=== PATIENT | female | born 1945 | race Caucasian/White ===

== ENCOUNTER → 2016-09-28 | Outpatient (CLI) | payer BC, OTHER ==
[~2016-09-28] MED LIST: ACET-1256 PO; ACET-1311 PO; ACET1SUP84 PO; ATOR-22 PO; ATV5 PO; CRDCD180 PO; DLCS PR; DPKEC500 PO; ENOX100I SQ; FLUV100T12 PO; HMLI SC; LANS30TA3 PO; LEVO125T7 PO; LORA0.5T12 PO; MAGN400T6 PO; MAGNSUS5 PO; MULT-506 PO; PRNJ PO; PROTEIN SUPPLEMENT PO; [UNRECOGNIZED DRUG - CODE]; [UNRECOGNIZED DRUG - OTHER]
[2016-09-28 08:43] LABS: HEMATOCRIT 43.6 % (37-47); LYMPH % 40.1 %; MEAN CELL VOLUME 90.5 fL (80-100); MEAN CORPUSCULAR HEMOGLOBIN 30.1 pg (25-34); MEAN CORPUSCULAR HGB CONC 33.3 g/dl (32-36); MEAN PLATELET VOLUME 12.8 fL (7.4-10.4); MONO % 9.2 %; PLATELET COUNT 177 K/uL (130-400); RED BLOOD COUNT 4.82 M/uL (4.2-5.4); WHITE BLOOD COUNT 8.03 K/uL (4.8-10.8)
[2016-09-28 08:44] LABS: BASO % 0.2 %; BASO ABS # 0.02 K/uL (0-0.2); COMPLETE YES; IG% 0.5 %; LYMPH ABS # 3.22 K/uL (1.2-3.4)
[2016-09-28 09:58] LABS: ESTIMATED AVERAGE GLUCOSE 131 mg/dl; HA1C FLAG Normal (Normal)
== END ==
LOC: C.LABCC 08:03
PROVIDERS: ATTEND Internal Medicine
DX: I26.99 Other pulmonary embolism without acute cor pulmonale (principal); E11.9 Type 2 diabetes mellitus without complications

== ENCOUNTER → 2016-10-27 | Outpatient (CLI) | payer BC, OTHER ==
[2016-10-27 09:28] LABS: BASO % 0.4 %; BASO ABS # 0.03 K/uL (0-0.2); COMPLETE YES; HEMATOCRIT 44.4 % (37-47); IG% 0.4 %; LYMPH ABS # 2.98 K/uL (1.2-3.4); MEAN CELL VOLUME 91.5 fL (80-100); MEAN CORPUSCULAR HEMOGLOBIN 30.5 pg (25-34); MEAN CORPUSCULAR HGB CONC 33.3 g/dl (32-36); MEAN PLATELET VOLUME 12.6 fL (7.4-10.4); MONO % 8.7 %; NEUT % 46.5 %; PLATELET COUNT 179 K/uL (130-400); RED BLOOD COUNT 4.85 M/uL (4.2-5.4); WHITE BLOOD COUNT 7.45 K/uL (4.8-10.8)
== END ==
LOC: C.LABCC 08:32
PROVIDERS: ATTEND Internal Medicine
DX: Z86.711 Personal history of pulmonary embolism (principal)

== ENCOUNTER → 2016-11-26 | Outpatient (CLI) | payer BC, OTHER ==
[2016-11-26 08:32] LABS: BASO % 0.4 %; BASO ABS # 0.03 K/uL (0-0.2); COMPLETE YES; EOS % 4.3 %; HEMATOCRIT 42.9 % (37-47); LYMPH % 35.5 %; LYMPH ABS # 2.58 K/uL (1.2-3.4); MEAN CELL VOLUME 90.3 fL (80-100); MEAN CORPUSCULAR HEMOGLOBIN 30.1 pg (25-34); MEAN CORPUSCULAR HGB CONC 33.3 g/dl (32-36); MEAN PLATELET VOLUME 12.7 fL (7.4-10.4); MONO % 11.3 %; NEUT % 47.5 %; PLATELET COUNT 160 K/uL (130-400); RED BLOOD COUNT 4.75 M/uL (4.2-5.4); WHITE BLOOD COUNT 7.27 K/uL (4.8-10.8)
== END ==
LOC: C.LABCC 08:13
PROVIDERS: ATTEND Internal Medicine
DX: I26.99 Other pulmonary embolism without acute cor pulmonale (principal)

== ENCOUNTER → 2016-12-27 | Outpatient (CLI) | payer BC, OTHER ==
[2016-12-27 10:00] LABS: BASO % 0.5 %; BASO ABS # 0.04 K/uL (0-0.2); COMPLETE YES; EOS % 5.3 %; HEMATOCRIT 43.1 % (37-47); IG% 0.7 %; LYMPH % 37.1 %; LYMPH ABS # 3.06 K/uL (1.2-3.4); MEAN CELL VOLUME 92.5 fL (80-100); MEAN CORPUSCULAR HEMOGLOBIN 29.4 pg (25-34); MEAN CORPUSCULAR HGB CONC 31.8 g/dl (32-36); MEAN PLATELET VOLUME 12.7 fL (7.4-10.4); NEUT % 46.4 %; PLATELET COUNT 182 K/uL (130-400); RED BLOOD COUNT 4.66 M/uL (4.2-5.4); WHITE BLOOD COUNT 8.24 K/uL (4.8-10.8)
== END ==
LOC: C.LABCC 09:10
PROVIDERS: ATTEND Internal Medicine
DX: I26.99 Other pulmonary embolism without acute cor pulmonale (principal)

== ENCOUNTER → 2017-01-26 | Outpatient (CLI) | payer BC, OTHER ==
[2017-01-26 08:40] LABS: BASO % 0.3 %; BASO ABS # 0.03 K/uL (0-0.2); COMPLETE YES; EOS % 4.9 %; HEMATOCRIT 44.1 % (37-47); IG% 0.7 %; LYMPH ABS # 3.47 K/uL (1.2-3.4); MEAN CELL VOLUME 92.5 fL (80-100); MEAN CORPUSCULAR HEMOGLOBIN 30.4 pg (25-34); MEAN CORPUSCULAR HGB CONC 32.9 g/dl (32-36); MEAN PLATELET VOLUME 12.8 fL (7.4-10.4); MONO % 9.5 %; NEUT % 46.6 %; PLATELET COUNT 157 K/uL (130-400); RED BLOOD COUNT 4.77 M/uL (4.2-5.4); WHITE BLOOD COUNT 9.12 K/uL (4.8-10.8)
[2017-01-26 08:49] LABS: ALT/SGPT 17 U/L (12-78); AST/SGOT 19 U/L (15-37); BLOOD UREA NITROGEN 15 mg/dl (7-18); BUN/CREATININE RATIO 23.7 (10-20); CARBON DIOXIDE 31 mmol/L (21-32); CHLORIDE 103 mmol/L (98-107); CREATININE 0.65 mg/dl (0.60-1.20); GLUCOSE 109 mg/dl (70-99); POTASSIUM 4.1 mmol/L (3.5-5.1); SODIUM 141 mmol/L (136-145)
[2017-01-26 08:51] LABS: ALB/GLOB RATIO 0.9 (0.9-2); ALKALINE PHOSPHATASE 47 U/L (45-117)
[2017-01-26 09:02] LABS: CALCIUM 8.9 mg/dl (8.5-10.1)
[2017-01-26 09:47] LABS: ESTIMATED AVERAGE GLUCOSE 143 mg/dl; HA1C FLAG Normal (Normal)
== END ==
LOC: C.LABCC 08:13
PROVIDERS: ATTEND Internal Medicine
DX: I26.99 Other pulmonary embolism without acute cor pulmonale (principal); E11.9 Type 2 diabetes mellitus without complications; N18.9 Chronic kidney disease, unspecified; Z79.01 Long term (current) use of anticoagulants

== ENCOUNTER → 2017-02-25 | Outpatient (CLI) | payer BC, OTHER ==
[2017-02-25 08:33] LABS: BASO % 0.3 %; BASO ABS # 0.02 K/uL (0-0.2); COMPLETE YES; EOS % 4.7 %; HEMATOCRIT 45.1 % (37-47); IG% 0.8 %; LYMPH % 35.8 %; LYMPH ABS # 2.61 K/uL (1.2-3.4); MEAN CELL VOLUME 92.2 fL (80-100); MEAN CORPUSCULAR HEMOGLOBIN 29.4 pg (25-34); MEAN CORPUSCULAR HGB CONC 31.9 g/dl (32-36); MEAN PLATELET VOLUME 12.9 fL (7.4-10.4); NEUT % 47.4 %; PLATELET COUNT 190 K/uL (130-400); RED BLOOD COUNT 4.89 M/uL (4.2-5.4); WHITE BLOOD COUNT 7.29 K/uL (4.8-10.8)
== END ==
LOC: C.LABCC 08:12
PROVIDERS: ATTEND Internal Medicine
DX: I26.99 Other pulmonary embolism without acute cor pulmonale (principal); Z79.01 Long term (current) use of anticoagulants

== ENCOUNTER → 2017-03-28 | Outpatient (CLI) | payer BC, OTHER ==
[2017-03-28 10:07] LABS: BASO % 0.3 %; BASO ABS # 0.02 K/uL (0-0.2); COMPLETE YES; EOS % 2.8 %; HEMATOCRIT 42.8 % (37-47); IG% 0.8 %; LYMPH ABS # 2.93 K/uL (1.2-3.4); MEAN CELL VOLUME 91.3 fL (80-100); MEAN CORPUSCULAR HEMOGLOBIN 29.2 pg (25-34); MEAN PLATELET VOLUME 12.7 fL (7.4-10.4); MONO % 9.2 %; NEUT % 45.9 %; PLATELET COUNT 163 K/uL (130-400); RED BLOOD COUNT 4.69 M/uL (4.2-5.4); WHITE BLOOD COUNT 7.15 K/uL (4.8-10.8)
== END | disposition home or self-care (01) ==
LOC: C.LABCC 09:38
PROVIDERS: ATTEND Internal Medicine
DX: I26.99 Other pulmonary embolism without acute cor pulmonale (principal); Z51.81 Encounter for therapeutic drug level monitoring; Z79.01 Long term (current) use of anticoagulants

== ENCOUNTER → 2017-04-28 | Outpatient (CLI) | payer BC, OTHER ==
[2017-04-28 09:03] LABS: BASO % 0.2 %; BASO ABS # 0.02 K/uL (0-0.2); COMPLETE YES; EOS % 2.6 %; IG% 0.6 %; LYMPH % 28.6 %; LYMPH ABS # 2.29 K/uL (1.2-3.4); MEAN CELL VOLUME 92.4 fL (80-100); MEAN CORPUSCULAR HEMOGLOBIN 29.4 pg (25-34); MEAN CORPUSCULAR HGB CONC 31.8 g/dl (32-36); MEAN PLATELET VOLUME 12.6 fL (7.4-10.4); MONO % 10.2 %; NEUT % 57.8 %; PLATELET COUNT 165 K/uL (130-400); RED BLOOD COUNT 4.76 M/uL (4.2-5.4); WHITE BLOOD COUNT 8.02 K/uL (4.8-10.8)
== END ==
LOC: C.LABCC 07:55
PROVIDERS: ATTEND Internal Medicine
DX: I26.99 Other pulmonary embolism without acute cor pulmonale (principal); Z79.01 Long term (current) use of anticoagulants

== ENCOUNTER → 2017-05-30 | Outpatient (CLI) | payer BC, OTHER ==
[2017-05-30 09:09] LABS: BASO % 0.5 %; BASO ABS # 0.04 K/uL (0-0.2); COMPLETE YES; EOS % 4.3 %; HEMATOCRIT 42.8 % (37-47); IG% 0.9 %; LYMPH % 37.7 %; LYMPH ABS # 2.82 K/uL (1.2-3.4); MEAN CELL VOLUME 89.4 fL (80-100); MEAN CORPUSCULAR HEMOGLOBIN 29.4 pg (25-34); MEAN CORPUSCULAR HGB CONC 32.9 g/dl (32-36); MEAN PLATELET VOLUME 12.6 fL (7.4-10.4); MONO % 10.9 %; NEUT % 45.7 %; PLATELET COUNT 148 K/uL (130-400); RED BLOOD COUNT 4.79 M/uL (4.2-5.4); WHITE BLOOD COUNT 7.49 K/uL (4.8-10.8)
== END ==
LOC: C.LABCC 08:52
PROVIDERS: ATTEND Internal Medicine
DX: I26.99 Other pulmonary embolism without acute cor pulmonale (principal)

== ENCOUNTER → 2017-06-28 | Outpatient (CLI) | payer BC, OTHER ==
[2017-06-28 08:51] LABS: BASO % 0.5 %; BASO ABS # 0.05 K/uL (0-0.2); COMPLETE YES; EOS % 3.1 %; HEMATOCRIT 42.6 % (37-47); LYMPH % 30.6 %; LYMPH ABS # 3.08 K/uL (1.2-3.4); MEAN CELL VOLUME 90.3 fL (80-100); MEAN CORPUSCULAR HGB CONC 32.2 g/dl (32-36); MEAN PLATELET VOLUME 12.9 fL (7.4-10.4); MONO % 11.3 %; NEUT % 53.5 %; PLATELET COUNT 145 K/uL (130-400); RED BLOOD COUNT 4.72 M/uL (4.2-5.4); WHITE BLOOD COUNT 10.08 K/uL (4.8-10.8)
== END ==
LOC: C.LABCC 08:07
PROVIDERS: ATTEND Internal Medicine
DX: I26.99 Other pulmonary embolism without acute cor pulmonale (principal)

== ENCOUNTER → 2017-07-19 | Outpatient (CLI) | payer BC, OTHER | LOC: C.LABCC 07:39 | PROVIDERS: ATTEND Internal Medicine | DX: E03.9 Hypothyroidism, unspecified (principal) ==

== ENCOUNTER → 2017-07-28 | Outpatient (CLI) | payer BC, OTHER ==
[2017-07-28 08:17] LABS: BASO % 0.5 %; BASO ABS # 0.04 K/uL (0-0.2); COMPLETE YES; HEMATOCRIT 43.6 % (37-47); IG% 1.4 %; LYMPH % 30.5 %; LYMPH ABS # 2.44 K/uL (1.2-3.4); MEAN CELL VOLUME 89.9 fL (80-100); MEAN CORPUSCULAR HEMOGLOBIN 29.1 pg (25-34); MEAN CORPUSCULAR HGB CONC 32.3 g/dl (32-36); MEAN PLATELET VOLUME 12.8 fL (7.4-10.4); MONO % 11.3 %; NEUT % 51.3 %; PLATELET COUNT 159 K/uL (130-400); RED BLOOD COUNT 4.85 M/uL (4.2-5.4)
== END ==
LOC: C.LABCC 07:59
PROVIDERS: ATTEND Internal Medicine
DX: I26.99 Other pulmonary embolism without acute cor pulmonale (principal)

== ENCOUNTER → 2017-08-29 | Outpatient (CLI) | payer BC, OTHER ==
[2017-08-29 11:46] LABS: BASO % 0.4 %; BASO ABS # 0.03 K/uL (0-0.2); EOS % 4.1 %; EOS ABS # 0.33 K/uL (0-0.5); HEMATOCRIT 42.6 % (37-47); HEMOGLOBIN 13.6 g/dL (12.0-16.0); IG# 0.09 K/uL (0.00-0.02); LYMPH % 31.4 %; LYMPH ABS # 2.53 K/uL (1.2-3.4); MEAN CELL VOLUME 88.8 fL (80-100); MEAN CORPUSCULAR HEMOGLOBIN 28.3 pg (25-34); MEAN CORPUSCULAR HGB CONC 31.9 g/dl (32-36); MEAN PLATELET VOLUME 12.7 fL (7.4-10.4); MONO % 10.8 %; MONO ABS # 0.87 K/uL (0.11-0.59); NEUT % 52.2 %; NEUT ABS # 4.22 K/uL (1.4-6.5); PLATELET COUNT 148 K/uL (130-400); RED CELL DISTRIBUTION WIDTH SD 45.3 fL (36.4-46.3); WHITE BLOOD COUNT 8.07 K/uL (4.8-10.8)
== END ==
LOC: C.LABCC 09:50
PROVIDERS: ATTEND Internal Medicine
DX: I26.99 Other pulmonary embolism without acute cor pulmonale (principal)

== ENCOUNTER → 2017-09-28 | Outpatient (CLI) | payer BC, OTHER ==
[2017-09-28 10:12] LABS: BASO % 0.4 %; BASO ABS # 0.03 K/uL (0-0.2); EOS % 3.1 %; EOS ABS # 0.24 K/uL (0-0.5); HEMATOCRIT 40.7 % (37-47); HEMOGLOBIN 13.2 g/dL (12.0-16.0); IG# 0.06 K/uL (0.00-0.02); LYMPH % 32.4 %; LYMPH ABS # 2.52 K/uL (1.2-3.4); MEAN CELL VOLUME 86.2 fL (80-100); MEAN CORPUSCULAR HGB CONC 32.4 g/dl (32-36); MONO % 10.9 %; MONO ABS # 0.85 K/uL (0.11-0.59); NEUT % 52.4 %; NEUT ABS # 4.08 K/uL (1.4-6.5); PLATELET COUNT 145 K/uL (130-400); RED CELL DISTRIBUTION WIDTH CV 14.3 % (11.5-14.5); RED CELL DISTRIBUTION WIDTH SD 44.9 fL (36.4-46.3); WHITE BLOOD COUNT 7.78 K/uL (4.8-10.8)
== END ==
LOC: C.LABCC 09:51
PROVIDERS: ATTEND Internal Medicine
DX: Z51.81 Encounter for therapeutic drug level monitoring (principal); Z79.01 Long term (current) use of anticoagulants; I26.99 Other pulmonary embolism without acute cor pulmonale

== ENCOUNTER → 2017-10-26 | Outpatient (CLI) | payer BC, OTHER ==
[2017-10-26 10:37] LABS: BASO % 0.4 %; BASO ABS # 0.03 K/uL (0-0.2); EOS % 4.2 %; EOS ABS # 0.31 K/uL (0-0.5); HEMATOCRIT 42.4 % (37-47); HEMOGLOBIN 13.6 g/dL (12.0-16.0); IG# 0.06 K/uL (0.00-0.02); LYMPH % 32.8 %; LYMPH ABS # 2.42 K/uL (1.2-3.4); MEAN CORPUSCULAR HEMOGLOBIN 27.6 pg (25-34); MEAN CORPUSCULAR HGB CONC 32.1 g/dl (32-36); MEAN PLATELET VOLUME 12.2 fL (7.4-10.4); MONO % 11.5 %; MONO ABS # 0.85 K/uL (0.11-0.59); NEUT % 50.3 %; PLATELET COUNT 146 K/uL (130-400); RED CELL DISTRIBUTION WIDTH CV 14.5 % (11.5-14.5); RED CELL DISTRIBUTION WIDTH SD 45.2 fL (36.4-46.3); WHITE BLOOD COUNT 7.37 K/uL (4.8-10.8)
== END | disposition home or self-care (01) ==
LOC: C.LABCC 09:48
PROVIDERS: ATTEND Internal Medicine
DX: I26.99 Other pulmonary embolism without acute cor pulmonale (principal); E11.9 Type 2 diabetes mellitus without complications

== ENCOUNTER → 2017-11-28 | Outpatient (CLI) | payer BC, OTHER ==
[2017-11-28 09:20] LABS: HEMATOCRIT 40.9 % (37-47); HEMOGLOBIN 13.2 g/dL (12.0-16.0); MEAN CELL VOLUME 84.9 fL (80-100); MEAN CORPUSCULAR HEMOGLOBIN 27.4 pg (25-34); MEAN CORPUSCULAR HGB CONC 32.3 g/dl (32-36); PLATELET COUNT 168 K/uL (130-400); RED CELL DISTRIBUTION WIDTH SD 46.2 fL (36.4-46.3); WHITE BLOOD COUNT 8.03 K/uL (4.8-10.8)
[2017-11-28 09:22] LABS: BASO % 0.4 %; BASO ABS # 0.03 K/uL (0-0.2); EOS % 3.5 %; EOS ABS # 0.28 K/uL (0-0.5); IG# 0.04 K/uL (0.00-0.02); LYMPH % 35.4 %; LYMPH ABS # 2.84 K/uL (1.2-3.4); MONO % 11.6 %; MONO ABS # 0.93 K/uL (0.11-0.59); NEUT % 48.6 %; NEUT ABS # 3.91 K/uL (1.4-6.5)
== END ==
LOC: C.LABCC 08:04
PROVIDERS: ATTEND Internal Medicine
DX: I26.99 Other pulmonary embolism without acute cor pulmonale (principal); Z79.01 Long term (current) use of anticoagulants

== ENCOUNTER → 2017-12-26 | Outpatient (CLI) | payer BC, OTHER ==
[2017-12-26 08:44] LABS: BASO % 0.3 %; BASO ABS # 0.02 K/uL (0-0.2); EOS % 3.3 %; EOS ABS # 0.23 K/uL (0-0.5); HEMATOCRIT 41.5 % (37-47); HEMOGLOBIN 13.4 g/dL (12.0-16.0); IG# 0.05 K/uL (0.00-0.02); LYMPH ABS # 2.54 K/uL (1.2-3.4); MEAN CELL VOLUME 84.5 fL (80-100); MEAN CORPUSCULAR HEMOGLOBIN 27.3 pg (25-34); MEAN CORPUSCULAR HGB CONC 32.3 g/dl (32-36); MEAN PLATELET VOLUME 11.8 fL (7.4-10.4); MONO % 9.4 %; MONO ABS # 0.66 K/uL (0.11-0.59); NEUT % 50.3 %; NEUT ABS # 3.55 K/uL (1.4-6.5); PLATELET COUNT 152 K/uL (130-400); RED CELL DISTRIBUTION WIDTH CV 15.2 % (11.5-14.5); RED CELL DISTRIBUTION WIDTH SD 46.8 fL (36.4-46.3); WHITE BLOOD COUNT 7.05 K/uL (4.8-10.8)
== END ==
LOC: C.LABCC 08:20
PROVIDERS: ATTEND Internal Medicine
DX: I26.99 Other pulmonary embolism without acute cor pulmonale (principal)

== ENCOUNTER → 2018-03-28 | Outpatient (CLI) | payer BC, OTHER ==
[2018-03-28 08:56] LABS: BASO % 0.4 %; BASO ABS # 0.03 K/uL (0-0.2); EOS % 3.4 %; EOS ABS # 0.25 K/uL (0-0.5); HEMATOCRIT 41.7 % (37-47); IG# 0.08 K/uL (0.00-0.02); LYMPH % 34.6 %; LYMPH ABS # 2.52 K/uL (1.2-3.4); MEAN CELL VOLUME 85.5 fL (80-100); MEAN CORPUSCULAR HEMOGLOBIN 26.6 pg (25-34); MEAN CORPUSCULAR HGB CONC 31.2 g/dl (32-36); MEAN PLATELET VOLUME 12.8 fL (7.4-10.4); MONO % 8.9 %; MONO ABS # 0.65 K/uL (0.11-0.59); NEUT % 51.6 %; NEUT ABS # 3.76 K/uL (1.4-6.5); PLATELET COUNT 196 K/uL (130-400); RED CELL DISTRIBUTION WIDTH CV 16.1 % (11.5-14.5); WHITE BLOOD COUNT 7.29 K/uL (4.8-10.8)
== END ==
LOC: C.LABCC 08:40
PROVIDERS: ATTEND Internal Medicine
DX: I26.99 Other pulmonary embolism without acute cor pulmonale (principal)

== ENCOUNTER → 2018-04-06 | Outpatient (CLI) | payer BC, OTHER ==
[2018-04-06 09:02] LABS: BLOOD UREA NITROGEN 16 mg/dl (7-18); CARBON DIOXIDE 30 mmol/L (21-32); GLUCOSE 77 mg/dl (70-99); POTASSIUM 3.9 mmol/L (3.5-5.1); SODIUM 142 mmol/L (136-145)
== END | disposition home or self-care (01) ==
LOC: C.LABCC 08:37
PROVIDERS: ATTEND Internal Medicine
DX: R19.00 Intra-abdominal and pelvic swelling, mass and lump, unspecified site (principal)

== ENCOUNTER 2019-06-18 05:16 | Inpatient (IN) ==
[2019-06-18] MEDS ORDERED: LORazepam 0.5 MG/1 ML VIAL IV STA (05:25)
--- NOTE | 2019-06-18 05:35 | Emergency Department Note ---
ED Provider Note Name: VICKIE YAO Age: 74 Arrives Via: Ambulance Informant: Family, EMS, Patient CC: right abdominal swelling HPI: 74F arrives for evaluation of right abdominal swelling. Noted earlier in day right abdominal swelling. Associated pain and bruising noted. She has no vomiting, passing out, nor trauma. She has been uncomfortable. Noted to be increasing swelling this morning. Sent to ED for further evaluation. Fentanyl 25mcg IV by EMS [facility]. Movement makes worse, rest makes better. No previous bleeding issues. She is on Lovenox Subq chronically. ROS: See above HPI for pertinent positives & negatives. A total of 10 systems reviewed and were otherwise negative. Past Medical History:PE, HTN, Depression, ICH, DLP, Hypothyroidism, CKD, Sleep Apnea, DMII, DVT, MRSA, muscle contractures Past Surgical History:Appendectomy, Hysterectomy, Lumbar Laminectomy/Discectomy, Vascular Surgery Legs Family History:See Below. Social History:See Below. [facility] resident. non smoker, no etoh, no drugs. Previous addiction narcotics. Home Medications:See Below Allergies:See Below Vitals:BP 135/88, P 13, R 20, T 3, O2 97% Physical Exam: GENERAL: Patient is chronically unwell appearing and in mild distress. Very anxious appearing. Bedbound chronically EYES: No scleral icterus, unremarkable pupils. ENT: Mucous membranes moist, no nasal congestion. NECK: No masses appreciated, nomeningismus, trachea is midline. RESPIRATORY: No dyspnea. Clear to auscultation and equal bilaterally. No wheeze, no rhonchi. CARDIOVASCULAR: Mildly tachy.No murmurs, rubs, gallops appreciated. GASTROINTESTINAL: large right firm swelling right anterior abdomen with bruising posterior to this. Mildly tender. Otherwise abdomen soft, non-tender, no peritonitis.Bowel sounds positive. BACK: No midline tenderness, no CVA tenderness EXTREMITIES: No cyanosis, no edema. Muscle wasting and contractures of arms/legs NEUROLOGIC: Awake, no acute motor or sensory deficits, no focal weakness, cranial nerves grossly intact. SKIN: No rash, no jaundice, no diaphoresis. ED Course: Prior Medical Record, Triage/Nursing Notes, Medications, Allergies reviewed by Me Vital Signs: reviewed and remarkable for tachy Labs:Reviewed and remarkable for anemia Interventions: Saline lock, Ativan 0.5mg IV Imaging:[facility] Radiologist interpretation reviewed by me: Right anterior abdominal hematoma [id number] Consults:Dr Bliss aware and will evaluate further Reassessments/Times: Multiple. Patient quite somnolent with episodes of apnea post Ativan. Placed on BiPAP and breathing improved. Periodic hypoxia prior to bipap Blood pressure:Normal.No Referral necessary Disposition:Hospitalization Differentials:Hematoma, Abscess, Intraabdominal mass, bleeding disorder, anemia amongst other pathologies. Medical Decision Makin yr old female with large anterior right abdominal mass in area of Lovenox injection. She is very anxious/agitated on arrival in pain despite IV fentanyl by EMS. She was given IV ativan to help calm down and to allow CT obtain. She is anaphylactic to IV Dye per family thus non-con CT ordered. Labs with moderate drop Hgb from 11 to 9 from labs a few weeks ago. Otherwise labs OK. She was found to become increasingly apneic as she is now quite somnolent. Placed on BiPAP for this which seems to have improved breathing. Still sleepy but awakens to voice and looks around room. She is not hypotensive nor tachy. I do not feel that emergent transfusion indicated. She is DNR per family. They make clear they would be hesitant to do any surgery. Hospitalist consulted for further management and evaluation. After about 30-45 minutes of Bipap able to be removed and breathing comfortably. Impression: Abdominal wall hematoma Anticoagulated Respiratory Depression Gerhard Schneider MD Impression & Plan Abdominal wall hematoma, Anticoagulated, Respiratory depression Past Med/Surg History Medical History Ambulatory dysfunction CKD (chronic kidney disease) stage 3, GFR 30-59 ml/min Chronic pain syndrome Diabetes HTN (hypertension), benign History of DVT (deep vein thrombosis) History of cardiac arrest History of pulmonary embolism History of spontaneous subarachnoid intracranial hemorrhage associated with coagulopathy Hyperlipidemia Hypothyroidism MRSA (methicillin resistant Staphylococcus aureus) Major depressive disorder Mild cognitive impairment SANJEEV (obstructive sleep apnea) Surgical History History of appendectomy History of hysterectomy History of vein stripping Hx of decompressive lumbar laminectomy Family History Other Family history non-contributory Social History Preferred Language: Croatian Communication Ability: Effective Skills Auditor Required: No Beliefs That Will Affect Care: None marital status: Current Living Situation: Detention Current Living Situation Comment: [facility] current occupational status: retired current occupation: Previously worked as a nurse Feels Safe at Home: Yes Smoking Status: Never smoker Hx Alcohol Use: No Hx Substance Use: No Results & Data Vital Signs Vital Signs - 24 hr 06/18/19 05:24 06/18/19 06:14 06/18/19 06:16 Temperature 37 C Temperature Source Oral Sepsis Recent Fever Within 48 Hours No Sepsis Action Taken by Nursing No Action Required Pulse Rate 103 H Pulse Rate [Bilateral Apical] 97 H Respiratory Rate 20 16 Respiratory Effort / Characteristics Non-Labored Non-Labored Respiratory Depth Normal Normal Blood Pressure 135/88 Blood Pressure [Left Arm] 99/62 L Blood Pressure Mean 103 Blood Pressure Mean [Left Arm] 74 Pulse Oximetry 97 96 96 Oxygen Delivery Method Room Air Room Air Room Air Fraction of Inspired Oxygen 06/18/19 06:38 06/18/19 06:53 06/18/19 07:39 Temperature Temperature Source Sepsis Recent Fever Within 48 Hours Sepsis Action Taken by Nursing Pulse Rate 98 H Pulse Rate [Bilateral Apical] 97 H 102 H Respiratory Rate 20 16 20 Respiratory Effort / Characteristics Respiratory Depth Blood Pressure Blood Pressure [Left Arm] 118/90 102/67 Blood Pressure Mean Blood Pressure Mean [Left Arm] 99 78 Pulse Oximetry 96 100 95 Oxygen Delivery Method BiPAP Room Air Fraction of Inspired Oxygen 40 Laboratory Data Result diagrams: 06/18/19 20:06 06/18/19 05:53 Lab Results 06/18/19 06/18/19 06/18/19 Range/Units 05:53 05:53 05:53 WBC 12.12 H (4.8-10.8) K/uL RBC 3.62 L (4.2-5.4) M/uL Hgb 9.4 L (12.0-16.0) g/dL Hct 30.5 L (37-47) % MCV 84.3 (80-100) fL MCH 26.0 (25-34) pg MCHC 30.8 L (32-36) g/dL RDW Std Deviation 52.1 H (36.4-46.3) fL RDW Coeff of Ronald 17.2 H (11.5-14.5) % Plt Count 148 (130-400) K/uL MPV 12.1 H (7.4-10.4) fL Immature Gran % (Auto) 0.3 % Neut % (Auto) 69.3 % Lymph % (Auto) 17.7 % [place] % (Auto) 11.4 % Eos % (Auto) 1.1 % Baso % (Auto) 0.2 % Immature Gran # (Auto) 0.04 H (0.00-0.02) K/uL Neut # (Auto) 8.39 H (1.4-6.5) K/uL Lymph # (Auto) 2.15 (1.2-3.4) K/uL [place] # (Auto) 1.38 H (0.11-0.59) K/uL Eos # (Auto) 0.13 (0-0.5) K/uL Baso # (Auto) 0.03 (0-0.2) K/uL PT 10.5 (9.0-12.0) Seconds INR 1.0 (0.9-1.1) APTT 27.6 (21.0-31.0) Seconds PTT Ratio 1.0 Sodium 139 (136-145) mmol/L Potassium 4.4 (3.5-5.1) mmol/L Chloride 105 (98-107) mmol/L Carbon Dioxide 29 (21-32) mmol/L Anion Gap 5.0 (3-11) BUN 20 H (7-18) mg/dl Creatinine 0.80 (0.6-1.2) mg/dl Est Cr Clr Drug Dosing Not Reportable Est GFR ( Amer) 83.6 Est GFR (Non-Af Amer) 72.1 BUN/Creatinine Ratio 24.8 H (10-20) Glucose 176 H (70-99) mg/dl Calcium 8.9 (8.5-10.1) mg/dl Total Bilirubin 0.2 (0.2-1) mg/dl Direct Bilirubin < 0.1 (0-0.2) mg/dl AST 15 (15-37) U/L ALT 25 (12-78) U/L Alkaline Phosphatase 67 (45-117) U/L Total Protein 6.5 (6.4-8.2) gm/dl Albumin 2.6 L (3.4-5.0) gm/dl Lipase 96 (73-393) U/L Administered Medications Acetaminophen (Tylenol) 1,000 mg PO Q8H SAUL Stop: 07/18/19 19:59 Last Admin: 06/18/19 20:22 Dose: 1,000 mg Documented by: [id number] Atorvastatin Calcium (Lipitor) 20 mg PO QPM SAUL Stop: 07/18/19 20:59 Last Admin: 06/18/19 20:22 Dose: 20 mg Documented by: [id number] Diltiazem HCl (Cardizem Cd) 180 mg PO QAM SAUL Stop: 07/18/19 10:09 Last Admin: 06/18/19 11:12 Dose: 180 mg Documented by: [id number] Divalproex Sodium (Depakote Sprinkle) 375 mg PO 1230 SAUL Stop: 07/18/19 12:29 Last Admin: 06/18/19 12:04 Dose: 375 mg Documented by: [id number] Divalproex Sodium (Depakote Sprinkle) 500 mg PO 0830,1630 SAUL Stop: 07/18/19 16:29 Last Admin: 06/18/19 16:34 Dose: 500 mg Documented by: [id number] Fluvoxamine Maleate (Luvox) 100 mg PO BID SAUL Stop: 07/18/19 10:09 Last Admin: 06/18/19 20:22 Dose: 100 mg Documented by: [id number] Admin: 06/18/19 12:04 Dose: 100 mg Documented by: [id number] Sodium Chloride (Nss 1000ml) 1,000 mls @ 100 mls/hr IV .Q10H SAUL Stop: 07/18/19 15:14 Last Admin: 06/18/19 15:32 Dose: 100 mls/hr Documented by: [id number] Insulin Aspart (Novolog Flexpen) 0 units SC ACHS SAUL Stop: 07/18/19 11:29 Last Admin: 06/18/19 20:24 Dose: 1 units Documented by: [id number] Cosigned by: [id number] Admin: 06/18/19 17:36 Dose: 2 units Documented by: [id number] Cosigned by: [id number] Admin: 06/18/19 13:09 Dose: 3 units Documented by: [id number] Cosigned by: [id number] Lansoprazole (Prevacid) 30 mg PO DAILY SAUL Stop: 07/18/19 10:09 Last Admin: 06/18/19 12:04 Dose: 30 mg Documented by: [id number] Levothyroxine Sodium (Levothyroxine Sodium) 137 mcg PO DAILYBB SAUL Stop: 07/18/19 10:09 Last Admin: 06/18/19 11:12 Dose: 137 mcg Documented by: [id number] Lorazepam (Ativan) 0.25 mg PO BID PRN PRN Reason: Agitation Stop: 07/18/19 10:09 Last Admin: 06/18/19 15:25 Dose: 0.25 mg Documented by: [id number] Miscellaneous (Order Awaiting Action) 1 ea N/A QS SAUL Stop: 07/18/19 15:59 Last Admin: 06/18/19 15:46 Dose: Not Given Documented by: [id number] Multivitamins/Minerals (Multivitamin W/ Minerals Tab) 1 tab PO QAM SAUL Stop: 07/18/19 10:09 Last Admin: 06/18/19 12:04 Dose: 1 tab Documented by: [id number] Discontinued Medications Acetaminophen (Tylenol) 650 mg PO Q6H PRN PRN Reason: Pain Stop: 07/18/19 10:09 Last Admin: 06/18/19 15:25 Dose: 650 mg Documented by: [id number] Admin: 06/18/19 11:12 Dose: 650 mg Documented by: [id number] Lorazepam (Ativan) 0.5 mg in 1 mls @ 1 mls/min IV NOW STA Stop: 06/18/19 05:26 Last Admin: 06/18/19 05:36 Dose: 1 mls/min Documented by: [id number] Medical Decision Making Laboratory Data Result diagrams: 06/18/19 20:06 06/18/19 05:53 Lab Results 06/18/19 06/18/19 06/18/19 Range/Units 05:53 05:53 05:53 WBC 12.12 H (4.8-10.8) K/uL RBC 3.62 L (4.2-5.4) M/uL Hgb 9.4 L (12.0-16.0) g/dL Hct 30.5 L (37-47) % MCV 84.3 (80-100) fL MCH 26.0 (25-34) pg MCHC 30.8 L (32-36) g/dL RDW Std Deviation 52.1 H (36.4-46.3) fL RDW Coeff of Ronald 17.2 H (11.5-14.5) % Plt Count 148 (130-400) K/uL MPV 12.1 H (7.4-10.4) fL Immature Gran % (Auto) 0.3 % Neut % (Auto) 69.3 % Lymph % (Auto) 17.7 % [place] % (Auto) 11.4 % Eos % (Auto) 1.1 % Baso % (Auto) 0.2 % Immature Gran # (Auto) 0.04 H (0.00-0.02) K/uL Neut # (Auto) 8.39 H (1.4-6.5) K/uL Lymph # (Auto) 2.15 (1.2-3.4) K/uL [place] # (Auto) 1.38 H (0.11-0.59) K/uL Eos # (Auto) 0.13 (0-0.5) K/uL Baso # (Auto) 0.03 (0-0.2) K/uL PT 10.5 (9.0-12.0) Seconds INR 1.0 (0.9-1.1) APTT 27.6 (21.0-31.0) Seconds PTT Ratio 1.0 Sodium 139 (136-145) mmol/L Potassium 4.4 (3.5-5.1) mmol/L Chloride 105 (98-107) mmol/L Carbon Dioxide 29 (21-32) mmol/L Anion Gap 5.0 (3-11) BUN 20 H (7-18) mg/dl Creatinine 0.80 (0.6-1.2) mg/dl Est Cr Clr Drug Dosing Not Reportable Est GFR ( Amer) 83.6 Est GFR (Non-Af Amer) 72.1 BUN/Creatinine Ratio 24.8 H (10-20) Glucose 176 H (70-99) mg/dl Calcium 8.9 (8.5-10.1) mg/dl Total Bilirubin 0.2 (0.2-1) mg/dl Direct Bilirubin < 0.1 (0-0.2) mg/dl AST 15 (15-37) U/L ALT 25 (12-78) U/L Alkaline Phosphatase 67 (45-117) U/L Total Protein 6.5 (6.4-8.2) gm/dl Albumin 2.6 L (3.4-5.0) gm/dl Lipase 96 (73-393) U/L [facility] Narrative Discharge Plan Visit Data *Final* Discharge Date/Time: 06/18/19 09:46 Chief Complaint: Abdominal Pain Stated Complaint: ABDOMINAL PAIN ED Provider: Gerhard Schneider Discharge Problem: Abdominal wall hematoma, Anticoagulated, Respiratory depression Patient Disposition: Admitted As Inpatient Discharge Instructions Interventions: ED Discharge Assessment Last Done: 06/18/19 09:46 Discharge Problem: Abdominal wall hematoma Qualifiers: Encounter type: initial encounter Qualified Code(s): S30.1XXA - Contusion of abdominal wall, initial encounter
[2019-06-18 06:06] LABS: Basophils # (auto) 0.03 K/uL (0-0.2); Basophils % (auto) 0.2 %; Eosinophils # (auto) 0.13 K/uL (0-0.5); Eosinophils % (auto) 1.1 %; Hematocrit (blood only) 30.5 % (37-47); Hemoglobin 9.4 g/dL (12.0-16.0); Immature Granulocytes # (auto) 0.04 K/uL (0.00-0.02); Immature Granulocytes % (auto) 0.3 %; Lymphocytes # (auto) 2.15 K/uL (1.2-3.4); Lymphocytes % (auto) 17.7 %; Mean Corpuscular Hgb Conc 30.8 g/dL (32-36); Mean Corpuscular Volume 84.3 fL (80-100); Mean Platelet Volume 12.1 fL (7.4-10.4); Monocytes # (auto) 1.38 K/uL (0.11-0.59); Monocytes % (auto) 11.4 %; Neutrophils # (auto) 8.39 K/uL (1.4-6.5); Neutrophils % (auto) 69.3 %; Platelet Count 148 K/uL (130-400); RDW Coefficient of Variation 17.2 % (11.5-14.5); RDW Standard Deviation 52.1 fL (36.4-46.3); Red Blood Count 3.62 M/uL (4.2-5.4); White Blood Count 12.12 K/uL (4.8-10.8)
[2019-06-18 06:23] LABS: Partial Thromboplastin Time 27.6 Seconds (21.0-31.0); Prothrombin Time 10.5 Seconds (9.0-12.0)
[2019-06-18 06:24] LABS: Alanine Aminotransferase 25 U/L (12-78); Albumin Level 2.6 gm/dl (3.4-5.0); Aspartate Aminotransferase 15 U/L (15-37); BUN Creatinine Ratio 24.8 (10-20); Bilirubin Direct < 0.1 mg/dl (0-0.2); Blood Urea Nitrogen 20 mg/dl (7-18); Calcium 8.9 mg/dl (8.5-10.1); Carbon Dioxide 29 mmol/L (21-32); Chloride 105 mmol/L (98-107); Est GFR (African American) 83.6; Est GFR (Non-African American) 72.1; Glucose 176 mg/dl (70-99); Lipase 96 U/L (73-393); Potassium 4.4 mmol/L (3.5-5.1); Sodium 139 mmol/L (136-145)
[2019-06-18 06:26] LABS: Alkaline Phosphatase 67 U/L (45-117); Bilirubin,Total 0.2 mg/dl (0.2-1); Total Protein 6.5 gm/dl (6.4-8.2)
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
--- NOTE | 2019-06-18 08:25 | CT Scan Report ---
CT abd pelvis wo con CLINICAL HISTORY: 74 years-old Female presenting with large right abdominal swelling. TECHNIQUE: Multidetector CT of the abdomen and pelvis was performed without the use of intravenous co ntrast. IV contrast: None. One or more dose lowering techniques were used consistent with the princip les of ALARA (as low as reasonably achievable), including automatic exposure control, mA or kV adjust ment to individual patient size, and/or use of iterative reconstruction. COMPARISON: 04/08/2011. CT DOSE (mGy.cm): The estimated cumulative dose is 618.45 mGy.cm. FINDINGS: Multigraph Operator topogram: Unremarkable. Lung bases: Normal heart size. No pericardial or pleural effusion. No focal infiltrate or nodule at t he lung bases. Liver: Congenital hypoplasia of the medial segments of the left hepatic lobe. Hypodense lesion may be present along the fissure for the falciform ligament, possibly hepatic cyst or focal fat. Normal den sity. Biliary: No gross biliary ductal dilatation allowing for noncontrast technique. The gallbladder is li emre physiologically distended. Pancreas: Normal noncontrast appearance. Spleen: Normal noncontrast appearance. Adrenal glands: Normal noncontrast appearance. Kidneys and ureters: Hyperdense exophytic lesion arising from the upper pole of the right kidney bobbi uring 2 cm unchanged from prior exam consistent with a hemorrhagic or proteinaceous cyst. No nephroli thiasis. No hydronephrosis. Normal ureters. Bladder: Normal. Pelvic organs: Uterus surgically absent. Bowel: Moderate stool burden in the rectum. No gross evidence of rectal wall thickening. Diverticulos is of the sigmoid colon. No significant wall thickening allowing for underdistention. No significant pericolonic inflammatory change. No bowel obstruction. Peritoneal cavity: No free fluid or intraperitoneal gas. Lymph nodes: No gross lymphadenopathy allowing for noncontrast technique. Vasculature: Atherosclerosis of the normal caliber abdominal aorta. Abdominal wall: Heterogeneously dense collection with fluid fluid level consistent with a hematocrit level in the right anterior abdominal wall superficial to the abdominal wall musculature or least a p ortion of the musculature. This collection measures 12.3 x 8.6 x 14.7 cm. Surrounding infiltrative ch anges in the subcutaneous fat of the right anterior abdominal wall. Multiple nodular foci of subcutan eous infiltration in the left anterior abdominal wall may represent medication administration. Musculoskeletal: Degenerative changes of the spine with extensive osseous fusion of both the vertebra l bodies and posterior elements. Osteopenia. IMPRESSION: 1. Superficial abdominal wall hematoma measuring 12.3 x 8.6 x 14.7 cm. This is most likely superfici al to the abdominal wall musculature rather than representing an intramuscular hematoma. 2. Apart from this, no acute intra-abdominal pathology allowing for noncontrast technique. 3. Extensive osseous fusion of the spine with osteopenia. The rigid spine increases the patient's ri sk for fracture. Electronically signed by: Dean Owens M.D. 06/18/2019 8:24 AM
--- NOTE | 2019-06-18 09:09 | Surgery Consultation ---
Date of Consultation June 18, 2019 Assessment & Plan (1) Abdominal wall hematoma: Normally I would favor evacuation of this hematoma because of its size And potential for significant pain, necrosis and/or infection. Patient is very frail her family is understandably learned about her having surgery She is in no distress nor is she and in an emergency situation I have discussed surgery and potential postoperative complications The present time we will continue with observation History of Present Illness History of Present Illness Patient is a 74-year-old female presenting to the emergency room from [facility] rest She has a gradually enlarging hematoma the right abdomen over the past 12 hours. She does receive chronic Lovenox. He is nonambulatory and essentially is on comfort measures At [facility]. Her CAT scan shows a 12 x 14-1/2 cm right abdominal wall hematoma. Her hemoglobin and hematocrit are 9.4 and 30.5 respectively platelet count of 148 He is awake in no distress her vital signs are stable Family is at the bedside Allergies Allergy/AdvReac Type Severity Reaction Status Date / Time codeine Allergy Unknown Unknown Verified 06/18/19 06:44 epinephrine Allergy Unknown Unknown Verified 06/18/19 06:44 Iodinated Contrast Media Allergy Unknown . Verified 06/18/19 06:44 pentazocine Allergy Unknown Unknown Verified 06/18/19 06:44 procaine Allergy Unknown Unknown Verified 06/18/19 06:44 Sulfa (Sulfonamide Allergy Unknown Unknown Verified 06/18/19 06:44 Antibiotics) tetracycline Allergy Unknown Unknown Verified 06/18/19 06:44 warfarin Allergy Unknown hives, Verified 05/11/10 15:30 went into "shock" Penicillins Allergy BAD HIVES Verified 09/19/09 03:41 Home Medications Home Medications Medication Instructions Recorded Confirmed Type acetaminophen 650 mg PO BID 06/18/19 06/18/19 History acetaminophen 650 mg PO Q6H PRN MDD 3g/24hr 06/18/19 06/18/19 History acetaminophen 650 mg PO Q6H PRN MDD 3g/24hr 06/18/19 06/18/19 History armodafinil 150 mg PO DAILY 06/18/19 06/18/19 History atorvastatin 20 mg PO QPM 06/18/19 06/18/19 History diltiazem HCl 180 mg PO QAM 06/18/19 06/18/19 History divalproex 375 mg PO .DAILY AT 1230 06/18/19 06/18/19 History divalproex 500 mg PO ..DAILY 0830 & 1630 06/18/19 06/18/19 History enoxaparin 100 mg SUBCUT QAM 06/18/19 06/18/19 History fluvoxamine 100 mg PO BID 06/18/19 06/18/19 History insulin lispro [Humalog U-100 1 sliding scale dose SUBCUT 06/18/19 06/18/19 H istory Insulin] USEASDIRECTD lansoprazole 30 mg PO DAILY 06/18/19 06/18/19 History levothyroxine 137 mcg PO DAILY 06/18/19 06/18/19 History loperamide 2 mg PO UD PRN 06/18/19 06/18/19 History lorazepam 0.25 mg PO BID 06/18/19 06/18/19 History multivitamin,[id number]-glgy-[id number] 1 tab PO QAM 06/18/19 06/18/19 History [Therems-M] Patient History Medical History Diabetes MRSA (methicillin resistant Staphylococcus aureus) Social History Preferred Language: Arabic Communication Ability: Effective 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 Beliefs That Will Affect Care: None Current Living Situation: [place]way Current Living Situation Comment: [facility] Other Information That Helps Us Care for You: No Feels Safe at Home: Yes Safety Concerns: Feels Safe At This Time Smoking Status: Never smoker Hx Alcohol Use: No Hx Substance Use: No Review of Systems Review of Systems: All systems reviewed & are unremarkable except as noted in HPI & below Physical Exam Physical Exam: Patient is awake and alert appropriately responsive Her vital signs are stable She is pale her mucous membranes are dry head is atraumatic ,she appears to be breathing comfortably Her heart rate is regular abdomen shows a palpable mass on the right side with some lateral ecchymosis It is tender to palpation approximately 12 x 15 cm and is marked Extremities are warm no rashes Results & Data Vital Signs (Past 12 Hours) Vital Signs Temp Pulse Pulse Resp BP BP Pulse Ox 06/18/19 07:39 102 H 20 102/67 95 06/18/19 06:53 97 H 16 118/90 100 06/18/19 06:38 98 H 20 96 06/18/19 06:16 96 06/18/19 06:14 97 H 16 99/62 L 96 06/18/19 05:24 37 C 103 H 20 135/88 97 I did review her CAT scan PG Care Time/CCT Total # of Minutes Spent Total Time Spent with Patient: Total time spent is greater than 50% in coordination of care (as documented) at patient's floor/unit and/or counseling patient: (1) Abdominal wall hematoma Encounter type: initial encounter Qualified Code(s): S30.1XXA - Contusion of abdominal wall, initial encounter
[2019-06-18] MEDS ORDERED: CARBOHYDRATES FOR HYPOGLYCEMIA PO PRN (10:10)
[2019-06-18] MEDS ORDERED: LOPERAMIDE HCL 2 MG CAP PO PRN (10:10)
[2019-06-18] MEDS ORDERED: SODIUM CHLORIDE 0.9% 250 ML IV PRN (10:10)
[2019-06-18] MEDS ORDERED: GLUCOSE 10 TABS/TUBE PO PRN (10:10)
[2019-06-18] MEDS ORDERED: DEXTROSE 50% 50 ML SYRINGE IV PRN (10:10)
[2019-06-18] MEDS ORDERED: GLUCAGON FOR INJ 1 MG VIAL SQ PRN (10:10)
[2019-06-18] MEDS ORDERED: GLUCOSE 40% GEL 15 GM TUBE PO PRN (10:10)
[2019-06-18] MEDS ORDERED: ONDANSETRON INJ 2 MG/ML 2 ML VIAL IV PRN (10:10)
[2019-06-18] MEDS: dilTIAZem HCL 180 MG CAPCR PO SCH (11:12)
[2019-06-18] MEDS: ACETAMINOPHEN 325 MG TAB PO PRN ×2 (11:12→15:25)
[2019-06-18] MEDS: LEVOTHYROXINE SODIUM 137 MCG TABLET PO SCH (11:12)
[2019-06-18] MEDS: FLUVOXAMINE MALEATE 50 MG TAB PO SCH ×2 (12:04→20:22)
[2019-06-18] MEDS: LANSOPRAZOLE 30 MG SOLTAB PO SCH (12:04)
[2019-06-18] MEDS: DIVALPROEX SODIUM SPRINKLE 125 MG CAP PO SCH ×2 (12:04→16:34)
[2019-06-18] MEDS: CEROVITE ADV FORMULA TAB PO SCH (12:04)
[2019-06-18 12:08] LABS: Hematocrit (blood only) 28.4 % (37-47); Hemoglobin 8.9 g/dL (12.0-16.0); Mean Corpuscular Hemoglobin 26.5 pg (25-34); Mean Corpuscular Hgb Conc 31.3 g/dL (32-36); Mean Corpuscular Volume 84.5 fL (80-100); Mean Platelet Volume 11.2 fL (7.4-10.4); Platelet Count 138 K/uL (130-400); RDW Coefficient of Variation 17.5 % (11.5-14.5); RDW Standard Deviation 53.4 fL (36.4-46.3); Red Blood Count 3.36 M/uL (4.2-5.4); White Blood Count 12.64 K/uL (4.8-10.8)
[2019-06-18] MEDS: INSULIN ASPART 100 UNITS/ML 3 ML PEN SC SCH ×3 (13:09→20:24)
[2019-06-18] MEDS: LORazepam 0.5 MG TAB PO PRN (15:25)
[2019-06-18] MEDS: SODIUM CHLORIDE 0.9% 1000ML 1,000 ML IV SCH (15:32)
[2019-06-18 16:30] LABS: Hematocrit (blood only) 25.6 % (37-47); Hemoglobin 8.2 g/dL (12.0-16.0); Mean Corpuscular Hemoglobin 26.7 pg (25-34); Mean Corpuscular Volume 83.4 fL (80-100); Mean Platelet Volume 12.1 fL (7.4-10.4); Platelet Count 159 K/uL (130-400); RDW Coefficient of Variation 17.5 % (11.5-14.5); RDW Standard Deviation 52.6 fL (36.4-46.3); Red Blood Count 3.07 M/uL (4.2-5.4); White Blood Count 12.92 K/uL (4.8-10.8)
[2019-06-18] MEDS ORDERED: ACETAMINOPHEN 500 MG TAB PO SCH (20:00)
[2019-06-18] MEDS: ATORVASTATIN 20 MG TAB PO SCH (20:22)
[2019-06-18 20:33] LABS: Hematocrit (blood only) 24.2 % (37-47); Hemoglobin 7.8 g/dL (12.0-16.0); Mean Corpuscular Hemoglobin 27.2 pg (25-34); Mean Corpuscular Hgb Conc 32.2 g/dL (32-36); Mean Corpuscular Volume 84.3 fL (80-100); Mean Platelet Volume 12.1 fL (7.4-10.4); Platelet Count 147 K/uL (130-400); RDW Coefficient of Variation 17.6 % (11.5-14.5); RDW Standard Deviation 53.9 fL (36.4-46.3); Red Blood Count 2.87 M/uL (4.2-5.4); White Blood Count 13.14 K/uL (4.8-10.8)
[2019-06-19] MEDS: SODIUM CHLORIDE 0.9% 1000ML 1,000 ML IV SCH ×2 (00:33→13:04)
[2019-06-19] MEDS ORDERED: SODIUM CHLORIDE 0.9% 250 ML IV PRN (01:32)
[2019-06-19] MEDS ORDERED: Nursing to Pharmacy Communication ONE (03:54)
[2019-06-19] MEDS: LEVOTHYROXINE SODIUM 137 MCG TABLET PO SCH (05:49)
[2019-06-19] MEDS ORDERED: ACETAMINOPHEN SOLN 1000MG/31.25ML UDC PO SCH (06:00)
[2019-06-19] MEDS: LORazepam 0.5 MG TAB PO PRN ×2 (06:20→20:52)
--- NOTE | 2019-06-19 07:01 | Surgery Progress Note ---
Date of Service June 19, 2019 Assessment & Plan (1) Abdominal wall hematoma: pts vital sigs have been stable- rec 1 u RBCs I expected her H/H to drop with equilibration- she does have Rt flank ecchymosis and edema- again, I expected this with size of hematoma She does not seem to have significant pain, N or vomiting No emergent reason to push for surgery as pt extremely high risk for postop complications- peterson respiratory I will check pt later today, then my partners will take over care Results & Data Vital Signs (Past 12 Hours) Vital Signs Temp Pulse Pulse Resp BP BP BP 06/19/19 05:42 36.9 C 98 H 18 145/73 H 06/19/19 04:43 36.9 C 60 18 124/72 06/19/19 03:43 36.7 C 91 H 99 H 130/71 06/19/19 03:30 36.7 C 89 16 114/57 L 06/19/19 03:15 37.0 C 89 16 130/77 06/19/19 02:58 36.9 C 93 H 16 115/69 06/19/19 02:39 36.8 C 91 H 16 114/66 06/19/19 00:36 100 H 06/18/19 23:11 36.6 C 99 H 20 124/74 06/18/19 19:31 36.3 C L 99 H 18 102/63 Pulse Ox 06/19/19 05:42 96 06/19/19 04:43 92 06/19/19 03:43 06/19/19 03:30 99 06/19/19 03:15 99 06/19/19 02:58 94 06/19/19 02:39 95 06/19/19 00:36 06/18/19 23:11 96 06/18/19 19:31 95 PG Care Time/CCT Total # of Minutes Spent Total Time Spent with Patient: Total time spent is greater than 50% in coordination of care (as documented) at patient's floor/unit and/or counseling patient: (1) Abdominal wall hematoma Encounter type: initial encounter Qualified Code(s): S30.1XXA - Contusion of abdominal wall, initial encounter
[2019-06-19] MEDS: INSULIN ASPART 100 UNITS/ML 3 ML PEN SC SCH ×4 (08:06→20:44)
[2019-06-19] MEDS: LANSOPRAZOLE 30 MG SOLTAB PO SCH (08:11)
[2019-06-19] MEDS: CEROVITE ADV FORMULA TAB PO SCH (08:11)
[2019-06-19] MEDS: FLUVOXAMINE MALEATE 50 MG TAB PO SCH ×2 (08:11→20:41)
[2019-06-19] MEDS: dilTIAZem HCL 180 MG CAPCR PO SCH (08:12)
[2019-06-19] MEDS: DIVALPROEX SODIUM SPRINKLE 125 MG CAP PO SCH ×3 (08:13→16:58)
[2019-06-19] MEDS ORDERED: MIDAZOLAM HCL 1 MG/ML 2ML VIAL ONE (09:37)
[2019-06-19] MEDS ORDERED: fentaNYL citrate 100 MCG/2 ML VIAL ONE (09:37)
[2019-06-19] MEDS ORDERED: BACITRACIN INJ 50,000 UNIT VIAL ONE (09:44)
[2019-06-19] MEDS ORDERED: BUPIVACAINE 0.5 % 5 MG/1 ML MPF 30ML VIAL ONE (09:44)
[2019-06-19] MEDS ORDERED: ONDANSETRON INJ 2 MG/ML 2 ML VIAL ONE (10:57)
[2019-06-19] MEDS ORDERED: PROPOFOL IV EMULSION 10 MG/ML 20 ML VIAL IV ONE (10:57)
[2019-06-19] MEDS ORDERED: DEXAMETHASONE SOD INJ 4 MG/ML VIAL ONE (10:57)
[2019-06-19] MEDS ORDERED: LIDOCAINE HCL 2% 2 ML VIAL/AMP(20MG/ML) INFIL ONE (10:57)
--- NOTE | 2019-06-19 10:57 | Anesthesiology Consultation ---
Date of Service June 19, 2019 Assessment & Plan Chart Review Chart Review: Acceptable Risk for Surgery and Patient NOT seen in Pre Admission Testing Consults Requested none Proposed Anesthesia Risk / Benefits Reviewed With: PT / POA / Parent / Guardian, Accepts Plan and Informed Consent Obtained History Surgery Operation Date: 06/19/19 08:50 Proposed Procedures p Right Abdominal Wall Evacuation of Hematoma - Elier Humphries MD, FACS Height/Weight Weight: 51.4 kg Allergies Allergy/AdvReac Type Severity Reaction Status Date / Time codeine Allergy Unknown Unknown Verified 06/18/19 06:44 epinephrine Allergy Unknown Unknown Verified 06/18/19 06:44 Iodinated Contrast Media Allergy Unknown . Verified 06/18/19 06:44 pentazocine Allergy Unknown Unknown Verified 06/18/19 06:44 procaine Allergy Unknown Unknown Verified 06/18/19 06:44 Sulfa (Sulfonamide Allergy Unknown Unknown Verified 06/18/19 06:44 Antibiotics) tetracycline Allergy Unknown Unknown Verified 06/18/19 06:44 warfarin Allergy Unknown hives, Verified 05/11/10 15:30 went into "shock" Penicillins Allergy BAD HIVES Verified 09/19/09 03:41 Medications Home Medications Medication Instructions Recorded Confirmed Last Taken acetaminophen 650 mg PO BID 06/18/19 06/18/19 06/17/19 14:30 acetaminophen 650 mg PO Q6H PRN MDD 3g/24hr 06/18/19 06/18/19 Unknown acetaminophen 650 mg PO Q6H PRN MDD 3g/24hr 06/18/19 06/18/19 06/18/19 00:37 armodafinil 150 mg PO DAILY 06/18/19 06/18/19 06/17/19 atorvastatin 20 mg PO QPM 06/18/19 06/18/19 06/17/19 20:30 diltiazem HCl 180 mg PO QAM 06/18/19 06/18/19 06/17/19 divalproex 375 mg PO .DAILY AT 1230 06/18/19 06/18/19 06/17/19 12:30 divalproex 500 mg PO ..DAILY 0830 & 1630 06/18/19 06/18/19 06/17/19 16:30 enoxaparin 100 mg SUBCUT QAM 06/18/19 06/18/19 06/17/19 fluvoxamine 100 mg PO BID 06/18/19 06/18/19 06/17/19 16:30 insulin lispro [Humalog U-100 1 sliding scale dose SUBCUT 06/18/19 06/18/19 Unknown Insulin] USEASDIRECTD lansoprazole 30 mg PO DAILY 06/18/19 06/18/19 06/18/19 levothyroxine 137 mcg PO DAILY 06/18/19 06/18/19 06/18/19 loperamide 2 mg PO UD PRN 06/18/19 06/18/19 Unknown lorazepam 0.25 mg PO BID 06/18/19 06/18/19 06/17/19 16:30 multivitamin,[id number] 1 tab PO QAM 06/18/19 06/18/19 06/17/19 [Therems-M] Active Medications Generic Name Dose Route Start Last Admin Trade Name Freq PRN Reason Stop Dose Admin Acetaminophen 1,000 mg 06/19/19 06:00 06/19/19 05:48 Tylenol Soln PO 07/19/19 05:59 1,000 mg Q8H SAUL Administration Atorvastatin Calcium 20 mg 06/18/19 21:00 06/18/19 20:22 Lipitor PO 07/18/19 20:59 20 mg QPM SAUL Administration Diltiazem HCl 180 mg 06/18/19 10:10 06/19/19 08:12 Cardizem Cd PO 07/18/19 10:09 Not Given QAM SAUL Divalproex Sodium 375 mg 06/18/19 12:30 06/18/19 12:04 Depakote Sprinkle PO 07/18/19 12:29 375 mg 1230 SAUL Administration Divalproex Sodium 500 mg 06/18/19 16:30 06/19/19 08:13 Depakote Sprinkle PO 07/18/19 16:29 Not Given 0830,1630 SAUL Fluvoxamine Maleate 100 mg 06/18/19 10:10 06/19/19 08:11 Luvox PO 07/18/19 10:09 Not Given BID SAUL Sodium Chloride 1,000 mls @ 100 mls/hr 06/18/19 15:15 06/19/19 02:32 Nss 1000ml IV 07/18/19 15:14 0 mls/hr .Q10H SAUL Infusion Insulin Aspart 0 units 06/18/19 11:30 06/19/19 08:06 Novolog Flexpen SC 07/18/19 11:29 3 units ACHS SAUL Administration Lansoprazole 30 mg 06/18/19 10:10 06/19/19 08:11 Prevacid PO 07/18/19 10:09 Not Given DAILY SAUL Levothyroxine Sodium 137 mcg 06/18/19 10:10 06/19/19 05:49 Levothyroxine Sodium PO 07/18/19 10:09 137 mcg DAILYBB SAUL Administration Lorazepam 0.25 mg 06/18/19 10:10 06/19/19 06:20 Ativan PO 07/18/19 10:09 0.25 mg BID PRN Administration Agitation Miscellaneous 1 ea 06/18/19 16:00 06/19/19 07:59 Order Awaiting Action N/A 07/18/19 15:59 Not Given QS SAUL Multivitamins/Minerals 1 tab 06/18/19 10:10 06/19/19 08:11 Multivitamin W/ Minerals Tab PO 07/18/19 10:09 Not Given QAM SAUL NPO Date Last Intake of Fluids: 06/18/19 Time Last Intake of Fluids: 18:00 Date Last Intake of Solids: 06/18/19 Time Last Intake of Solids: 18:00 Past Medical History Medical History Ambulatory dysfunction Chronic pain syndrome Diabetes HTN (hypertension), benign History of DVT (deep vein thrombosis) History of cardiac arrest History of pulmonary embolism History of spontaneous subarachnoid intracranial hemorrhage associated with coagulopathy Hyperlipidemia Hypothyroidism MRSA (methicillin resistant Staphylococcus aureus) Major depressive disorder Mild cognitive impairment SANJEEV (obstructive sleep apnea) Past Family History Family History Other Family history non-contributory Past Surgical History Surgical History History of appendectomy History of hysterectomy History of vein stripping Hx of decompressive lumbar laminectomy Social History Smoking Status: Never smoker Hx Alcohol Use: No Hx Substance Use: No Physical Exam Vital Signs Last Vital Signs Temp 37.6 C H 06/19/19 10:01 Pulse 91 H 06/19/19 10:01 Resp 22 11/05/19 10:01 BP 116/66 06/19/19 10:01 Pulse Ox 98 06/19/19 10:01 Testing Laboratory Results 06/18/19 20:06 06/18/19 05:53 PT 10.5 Seconds (9.0-12.0) 06/18/19 05:53 INR 1.0 (0.9-1.1) 06/18/19 05:53 APTT 27.6 Seconds (21.0-31.0) 06/18/19 05:53 Blood Type O Positive 06/18/19 11:59 Antibody Screen NEGATIVE 06/18/19 11:59 06/19/19 06/18/19 07:27 16:35 POC Glucose 209 H 178 H
[2019-06-19] MEDS ORDERED: ATROPINE SULFATE 0.1 MG/ML 10ML SYR IV PRN (10:59)
[2019-06-19] MEDS ORDERED: ePHEDrine sulfate 50 MG/ML AMP IV PRN (10:59)
[2019-06-19] MEDS ORDERED: PHENYLEPHRINE 100MCG/ML 5ML SYR ONE (11:01)
[2019-06-19] MEDS ORDERED: THROMBIN FOR SOLN 20000 UNIT KIT ONE (11:07)
--- NOTE | 2019-06-19 11:26 | Operative Report ---
PG Post Operative Report Pre & Post Diagnosis Operation Date: 06/19/19 08:50 Pre-Op Diagnosis: ACUTE BLOOD LOSS ANEMIA Post-Op Diagnosis: ACUTE BLOOD LOSS ANEMIA Abdominal wall hematoma I identified the patient and participated in the time-out.: Yes Procedure Operation Date: 06/19/19 08:50 Actual Procedures p Right Abdominal Wall Evacuation of Hematoma(Right) - Elier Humphries MD, FACS Surgeon Elier Humphries MD, FACS Test Automation Architect Delroy Jerez Estimated Blood Loss 10 Findings Consistent with Post-Op Diagnosis Specimens hematoma Description of Procedure see dictation I attest to the content of the Intraoperative Record and any orders documented therein. Any exceptions are noted below.
--- NOTE | 2019-06-19 12:31 | Anesthesiology Progress Note ---
Date of Service June 19, 2019 Anesthesia Post Procedure Vital Signs Vital Signs: Temp Pulse Pulse Pulse Resp BP BP 06/19/19 12:25 36.8 C 105 H 20 06/19/19 12:15 102 H 18 06/19/19 12:05 107 H 16 06/19/19 11:55 106 H 16 06/19/19 11:45 104 H 14 06/19/19 11:36 37.0 C 73 16 06/19/19 10:01 37.6 C H 91 H 22 06/19/19 09:32 36.9 C 97 H 20 06/19/19 08:52 36.5 C 95 H 20 123/68 06/19/19 08:33 103 H 06/19/19 08:25 37.0 C 96 H 18 128/78 06/19/19 08:10 37.0 C 97 H 20 131/79 06/19/19 07:58 36.7 C 95 H 20 06/19/19 07:55 36.7 C 95 H 20 116/74 06/19/19 07:35 36.8 C 98 H 18 115/72 06/19/19 07:20 36.8 C 104 H 20 118/60 06/19/19 05:42 36.9 C 98 H 18 145/73 H 06/19/19 04:43 36.9 C 60 18 124/72 06/19/19 03:43 36.7 C 91 H 99 H 130/71 06/19/19 03:30 36.7 C 89 16 114/57 L 06/19/19 03:15 37.0 C 89 16 130/77 06/19/19 02:58 36.9 C 93 H 16 115/69 06/19/19 02:39 36.8 C 91 H 16 114/66 06/19/19 00:36 100 H 06/18/19 23:11 36.6 C 99 H 20 06/18/19 19:31 36.3 C L 99 H 18 102/63 06/18/19 17:13 109 H 06/18/19 15:07 36.6 C 109 H 16 104/48 L BP Pulse Ox 06/19/19 12:25 107/70 100 06/19/19 12:15 108/77 100 06/19/19 12:05 116/76 100 06/19/19 11:55 111/79 100 06/19/19 11:45 121/86 99 06/19/19 11:36 146/88 H 97 06/19/19 10:01 116/66 98 06/19/19 09:32 115/68 97 06/19/19 08:52 97 06/19/19 08:33 06/19/19 08:25 93 06/19/19 08:10 95 06/19/19 07:58 116/74 97 06/19/19 07:55 97 06/19/19 07:35 06/19/19 07:20 96 06/19/19 05:42 96 06/19/19 04:43 92 06/19/19 03:43 06/19/19 03:30 99 06/19/19 03:15 99 06/19/19 02:58 94 06/19/19 02:39 95 06/19/19 00:36 06/18/19 23:11 124/74 96 06/18/19 19:31 95 06/18/19 17:13 06/18/19 15:07 94 Pain Intensity Right Abdomen: Pain Intensity: 8 Transfer of Care Handoff Completed per policy Notes Mental Status: alert / awake / arousable and participated in evaluation Patient Amnestic to Procedure: Yes Nausea / Vomiting: adequately controlled Pain: adequately controlled Airway Patency, RR, SpO2: stable & adequate BP & HR: stable & adequate Hydration State: stable & adequate Anesthetic Complications: no major complications apparent
--- NOTE | 2019-06-19 12:51 | Operative Report ---
DATE OF OPERATION: 06/19/2019 NAME OF OPERATION: Evacuation of abdominal wall hematoma, which was complex. PREOPERATIVE DIAGNOSIS: Abdominal wall hematoma. POSTOPERATIVE DIAGNOSIS: Abdominal wall hematoma. STAFF SURGEON: Elier Humphries MD. RETAIL GREETER: Thea Jerez. ANESTHESIA: General. DESCRIPTION OF PROCEDURE: The patient was brought in the operating room and placed on the operating table in supine position. After appropriate anesthetic, her right abdomen and flank were prepped and draped in usual fashion. My assistant track coach helped with prepping, draping, evacuation of the hematoma and closure of the wound. A transverse incision was made approximately 15 cm over the hematoma carrying dissection down into the cavity encountering approximately 1.5 liters of clot, which was evacuated. The site was then irrigated. I applied thrombin. There were no significant active vessels bleeding, some very mild oozing. There was no tracking into the flank as far as the cavity. There was ecchymosis from dependency. At this point, two #19 round Geoff-Lopez drains were placed, one superior medially and one inferiorly medially. These were secured using 3-0 nylon suture. Subcutaneous tissue was reapproximated using 2-0 plain suture and then the skin reapproximated using ashley. Dressing applied and patient was transferred to recovery room in stable condition. Blood loss was approximately 10 mL and then 1.5 liters at least of clot. I attest to the content of the Intraoperative Record and any orders documented therein. Any exception s are noted below.
[2019-06-19] MEDS ORDERED: TRAMADOL HCL 50 MG TABLET PO PRN (12:59)
[2019-06-19] MEDS ORDERED: MoRPHine SULFATE 2 MG/ML CARP IV PRN ×2 (12:59)
[2019-06-19] MEDS ORDERED: SODIUM CHLORIDE 0.9% 1000ML 1,000 ML IV SCH (12:59)
[2019-06-19] MEDS ORDERED: PROMETHAZINE HCL 12.5 MG in SODIUM CHLORIDE 0.9% 50 ML IV PRN (12:59)
[2019-06-19] MEDS ORDERED: ONDANSETRON INJ 2 MG/ML 2 ML VIAL IV PRN (12:59)
--- NOTE | 2019-06-19 13:16 | Critical Care Consultation ---
Date of Consultation June 19, 2019 Assessment & Plan (1) Abdominal wall hematoma: Reason Critically Ill: Post-op with evacuation of large abdominal wall hematoma secondary to iatrogenic injury occurring [employer]CH[employer] DES[employer] from Lovenox injection. Neuro: Drowsy but arouses to voice; follows simple commands. Is post-op with receiving general anesthesia. Noted for receiving Fentanyl and Ativan in ED. continue with home depakote continue with home fluvoxamine Cardiac/Vascular PMHx: HTN, HLD Tachycardic in low 100s, unsure of hx of tachycardia but suspect compensation for acute blood loss anemia BP stable at 114/75 Continue cardiac monitoring continue with home Lipitor qPM continue with home Diltiazem 180mg qAM Pulm: Currently Post-op with respiratory depression from pre-op pain narcotic requirements from Hematoma. On Oxy-mask 5L with adequate oxygenation 96% SpO2 Hemoptysis post-op most likely from trauma with general anesthesia. A CXR was ordered to rule out pneum/hemo thorax and was negative for acute injury/process. Expect respiratory depression to wean with time as anesthetic medications wear off GI: diabetic diet pureed continue with home Lansoprazole 30mg daily continue with home Multivitamin Renal/Lytes Post-op lab work did not show any electrolyte abnormalities IVFs NSS @ 50mL/hr : [facility]: Hx of DM2 with recent A1C 6.8 - at goal Hx Hypothyroid - continue with Levothyroxine 137mcg daily Heme: WBC 19.53 most likely stress response to illness; no signs for active infection Hgb 10.2 post op after receiving 2 units pRBCs Platelets mildly low at 123 most likely related to sequestration from hematoma ID: No signs of active infectious process Lines: Peripheral IVs DVT ppx: Chemical currently contraindicated Resuscitation Status: DNR/DNI - family at bedside conveys. (2) Acute blood loss anemia: Supervising Physician Co-Signing Physician Notes Patient is postop day 0 from status post evacuation of large abdominal wall hematoma. I had a discussion with the family, she has a long-standing history of venous thrombotic "issues" and her children remember her on heparin from the time that they were children until being converted to Lovenox. Approximately 9 years ago she suffered a cardiac arrest and has been nonambulatory and has had a diminished functional and mental capacity since that time. Her long-term memory is intact however her short-term memory subsequent to the cardiac arrest has been significantly impaired. They are unsure whether she has a genetic predisposition for thromboembolic disease. The larger question is with 9 years of not being ambulatory her underlying thrombotic risk should be low unless there is a genetic component. Certainly this episode is an adverse effect secjoaquina velardey to anticoagulation, we discussed risks and benefits of continuing systemic anticoagulation in this will likely need to be followed up upon. History of Present Illness Reason for Consultation: Acute Blood Loss Anemia secondary to Abdominal Wall Hematoma and post-op hemodynamic monitoring Attending Physician: Angelica Bliss MD History of Present Illness Lizbeth Monterroso is a 74 y/o female with a past medical history of DM 2, DVT/PE, cardiac arrest with anoxic brain injury, ambulatory dysfunction, HTN, HLD, hypothyroidism, chronic pain, depression, hx of SAH secondary to Coumadin, CKD stage III, SANJEEV previously on BiPAP, mild cognitive impairment,dysphagia, who presented to [facility] ED from the [facility] nursing with right-sided abdominal pain and a visualized expanding abdominal wall hematoma. Lizbeth is on daily L ovenox for ppx for hx of DVTs and PEs. Her abdominal wall hematoma was treated with surgical evacuation. She also received a transfusion of 2 units of pRBCs. Family is present at bedside post-op. They note she is having some hemoptysis and is drowsy. Also noted by nursing to have some respiratory depression post- op with coarse breath sounds. Family notes she does have a hx of SANJEEV but rarely uses BiPAP. They did bring BiPAP from residence with them. ED course is noted for patient receiving Fentanyl and Ativan. Allergies Allergy/AdvReac Type Severity Reaction Status Date / Time codeine Allergy Unknown Unknown Verified 06/18/19 06:44 epinephrine Allergy Unknown Unknown Verified 06/18/19 06:44 Iodinated Contrast Media Allergy Unknown . Verified 06/18/19 06:44 pentazocine Allergy Unknown Unknown Verified 06/18/19 06:44 procaine Allergy Unknown Unknown Verified 06/18/19 06:44 Sulfa (Sulfonamide Allergy Unknown Unknown Verified 06/18/19 06:44 Antibiotics) tetracycline Allergy Unknown Unknown Verified 06/18/19 06:44 warfarin Allergy Unknown hives, Verified 05/11/10 15:30 went into "shock" Penicillins Allergy BAD HIVES Verified 09/19/09 03:41 Home Medications Home Medications Medication Instructions Recorded Confirmed Type acetaminophen 650 mg PO BID 06/18/19 06/18/19 History acetaminophen 650 mg PO Q6H PRN MDD 3g/24hr 06/18/19 06/18/19 History acetaminophen 650 mg PO Q6H PRN MDD 3g/24hr 06/18/19 06/18/19 History armodafinil 150 mg PO DAILY 06/18/19 06/18/19 History atorvastatin 20 mg PO QPM 06/18/19 06/18/19 History diltiazem HCl 180 mg PO QAM 06/18/19 06/18/19 History divalproex 375 mg PO .DAILY AT 1230 06/18/19 06/18/19 History divalproex 500 mg PO ..DAILY 0830 & 1630 06/18/19 06/18/19 History enoxaparin 100 mg SUBCUT QAM 06/18/19 06/18/19 History fluvoxamine 100 mg PO BID 06/18/19 06/18/19 History insulin lispro [Humalog U-100 1 sliding scale dose SUBCUT 06/18/19 06/18/19 History Insulin] USEASDIRECTD lansoprazole 30 mg PO DAILY 06/18/19 06/18/19 History levothyroxine 137 mcg PO DAILY 06/18/19 06/18/19 History loperamide 2 mg PO UD PRN 06/18/19 06/18/19 History lorazepam 0.25 mg PO BID 06/18/19 06/18/19 History multivitamin,vy-qtvy-bzluhrow 1 tab PO QAM 06/18/19 06/18/19 History [Therems-M] Patient History Medical History Ambulatory dysfunction Chronic pain syndrome Diabetes HTN (hypertension), benign History of DVT (deep vein thrombosis) History of cardiac arrest History of pulmonary embolism History of spontaneous subarachnoid intracranial hemorrhage associated with coagulopathy Hyperlipidemia Hypothyroidism MRSA (methicillin resistant Staphylococcus aureus) Major depressive disorder Mild cognitive impairment SANJEEV (obstructive sleep apnea) Surgical History History of appendectomy History of evacuation of hematoma (06/19/19) Right Abdominal Wall Evacuation of Hematoma dr. Humphries 06/19/19 History of hysterectomy History of vein stripping Hx of decompressive lumbar laminectomy Family History Other Family history non-contributory Social History Preferred Language: Rwand[place] Communication Ability: Effective Treating Plant Pumper Required: No Beliefs That Will Affect Care: None marital status: Current Living Situation: [facility] Current Living Situation Comment: [facility] current occupational status: retired current occupation: Previously worked as a nurse Feels Safe at Home: Yes Smoking Status: Never smoker Hx Alcohol Use: No Hx Substance Use: No Review of Systems Review of Systems: Unobtainable due to reduced consciousness Respiratory: + hemoptysis Physical Exam Constitutional: + thin and comfortable drowsy Eyes: PERRL ENMT: external ear and nose normal, oropharynx normal Nose: no epistaxis Mouth: no tongue abnormality Neck: normal visual inspection and trachea midline; no neck crepitus and no anterior neck swelling Respiratory: no respiratory distress coarse breath sounds diffusely; poor air movement Cardiovascular: Rate/Rhythm: regular rhythm and + tachycardic Heart Sounds: + murmur (+2/6 systolic) Extremities: no pedal edema Gastrointestinal (Abdomen): right sided abdominal dressing clean dry intact with JHONATAN drains visualized Skin: no rashes, warm and dry + pallor Neurologic: Drowsy, but arouses to voice and follows simple commands Results & Data Vital Signs (Past 12 Hours) Vital Signs Temp Pulse Pulse Pulse Resp BP BP 06/19/19 12:25 36.8 C 105 H 20 06/19/19 12:15 102 H 18 06/19/19 12:05 107 H 16 06/19/19 11:55 106 H 16 06/19/19 11:45 104 H 14 06/19/19 11:36 37.0 C 73 16 06/19/19 10:01 37.6 C H 91 H 22 06/19/19 09:32 36.9 C 97 H 20 06/19/19 08:52 36.5 C 95 H 20 123/68 06/19/19 08:33 103 H 06/19/19 08:25 37.0 C 96 H 18 128/78 06/19/19 08:10 37.0 C 97 H 20 131/79 06/19/19 07:58 36.7 C 95 H 20 06/19/19 07:55 36.7 C 95 H 20 116/74 06/19/19 07:35 36.8 C 98 H 18 115/72 06/19/19 07:20 36.8 C 104 H 20 118/60 06/19/19 05:42 36.9 C 98 H 18 145/73 H 06/19/19 04:43 36.9 C 60 18 124/72 06/19/19 03:43 36.7 C 91 H 99 H 130/71 06/19/19 03:30 36.7 C 89 16 114/57 L 06/19/19 03:15 37.0 C 89 16 130/77 06/19/19 02:58 36.9 C 93 H 16 115/69 06/19/19 02:39 36.8 C 91 H 16 114/66 BP Pulse Ox 06/19/19 12:25 107/70 100 06/19/19 12:15 108/77 100 06/19/19 12:05 116/76 100 06/19/19 11:55 111/79 100 06/19/19 11:45 121/86 99 06/19/19 11:36 146/88 H 97 06/19/19 10:01 116/66 98 06/19/19 09:32 115/68 97 06/19/19 08:52 97 06/19/19 08:33 06/19/19 08:25 93 06/19/19 08:10 95 06/19/19 07:58 116/74 97 06/19/19 07:55 97 06/19/19 07:35 06/19/19 07:20 96 06/19/19 05:42 96 06/19/19 04:43 92 06/19/19 03:43 06/19/19 03:30 99 06/19/19 03:15 99 06/19/19 02:58 94 06/19/19 02:39 95 Laboratory Results Laboratory Results - last 24 hr 06/18/19 06/18/19 06/18/19 11:59 16:08 16:35 WBC 12.92 H RBC 3.07 L Hgb 8.2 L Hct 25.6 L MCV 83.4 MCH 26.7 MCHC 32.0 RDW Std Deviation 52.6 H RDW Coeff of Ronald 17.5 H Plt Count 159 MPV 12.1 H Immature Gran % (Auto) Neut % (Auto) Lymph % (Auto) Gulf % (Auto) Eos % (Auto) Baso % (Auto) Immature Gran # (Auto) Neut # (Auto) Lymph # (Auto) Gulf # (Auto) Eos # (Auto) Baso # (Auto) Platelet Estimate Echinocytes Sodium Potassium Chloride Carbon Dioxide Anion Gap BUN Creatinine Est Cr Clr Drug Dosing Est GFR ( Amer) Est GFR (Non-Af Amer) BUN/Creatinine Ratio Glucose POC Glucose 178 H Estimat Average Glucose Hemoglobin A1c Calcium Phosphorus Total Bilirubin AST ALT Alkaline Phosphatase Total Protein Albumin Globulin Albumin/Globulin Ratio Nasal Screen MRSA (PCR) Blood Type O Positive Antibody Screen NEGATIVE Crossmatch See Detail 06/18/19 06/18/19 06/19/19 20:06 20:15 07:27 WBC 13.14 H RBC 2.87 L Hgb 7.8 L Hct 24.2 L MCV 84.3 MCH 27.2 MCHC 32.2 RDW Std Deviation 53.9 H RDW Coeff of Ronald 17.6 H Plt Count 147 MPV 12.1 H Immature Gran % (Auto) Neut % (Auto) Lymph % (Auto) Gulf % (Auto) Eos % (Auto) Baso % (Auto) Immature Gran # (Auto) Neut # (Auto) Lymph # (Auto) Gulf # (Auto) Eos # (Auto) Baso # (Auto) Platelet Estimate Echinocytes Sodium Potassium Chloride Carbon Dioxide Anion Gap BUN Creatinine Est Cr Clr Drug Dosing Est GFR ( Amer) Est GFR (Non-Af Amer) BUN/Creatinine Ratio Glucose POC Glucose 165 H 209 H Estimat Average Glucose Hemoglobin A1c Calcium Phosphorus Total Bilirubin AST ALT Alkaline Phosphatase Total Protein Albumin Globulin Albumin/Globulin Ratio Nasal Screen MRSA (PCR) Blood Type Antibody Screen Crossmatch 06/19/19 06/19/19 06/19/19 11:42 12:56 12:56 WBC 19.53 H RBC 3.64 L Hgb 10.2 L Hct 31.5 L MCV 86.5 MCH 28.0 MCHC 32.4 RDW Std Deviation 54.2 H RDW Coeff of Ronald 17.0 H Plt Count 123 L MPV 12.3 H Immature Gran % (Auto) 0.9 Neut % (Auto) 86.0 Lymph % (Auto) 6.2 Gulf % (Auto) 6.7 Eos % (Auto) 0.1 Baso % (Auto) 0.1 Immature Gran # (Auto) 0.18 H Neut # (Auto) 16.78 H Lymph # (Auto) 1.22 Gulf # (Auto) 1.31 H Eos # (Auto) 0.02 Baso # (Auto) 0.02 Platelet Estimate Normal Echinocytes 1+ Sodium Cancelled Potassium Cancelled Chloride Cancelled Carbon Dioxide Cancelled Anion Gap Cancelled BUN Cancelled Creatinine Cancelled Est Cr Clr Drug Dosing Cancelled Est GFR ( Amer) Cancelled Est GFR (Non-Af Amer) Cancelled BUN/Creatinine Ratio Cancelled Glucose Cancelled POC Glucose 126 H Estimat Average Glucose Hemoglobin A1c Calcium Cancelled Phosphorus Total Bilirubin AST ALT Alkaline Phosphatase Total Protein Albumin Globulin Albumin/Globulin Ratio Nasal Screen MRSA (PCR) Blood Type Antibody Screen Crossmatch 06/19/19 06/19/19 06/19/19 13:00 13:05 13:05 WBC RBC Hgb Hct MCV MCH MCHC RDW Std Deviation RDW Coeff of Ronald Plt Count MPV Immature Gran % (Auto) Neut % (Auto) Lymph % (Auto) Gulf % (Auto) Eos % (Auto) Baso % (Auto) Immature Gran # (Auto) Neut # (Auto) Lymph # (Auto) Gulf # (Auto) Eos # (Auto) Baso # (Auto) Platelet Estimate Echinocytes Sodium 137 Potassium 4.6 Chloride 105 Carbon Dioxide 27 Anion Gap 5.0 BUN 21 H Creatinine 0.63 Est Cr Clr Drug Dosing Not Reportable Est GFR ( Amer) 101.7 Est GFR (Non-Af Amer) 87.7 BUN/Creatinine Ratio 32.5 H Glucose 152 H POC Glucose Estimat Average Glucose 148 Hemoglobin A1c 6.8 H Calcium 8.5 Phosphorus 4.7 Total Bilirubin 0.4 AST 14 L ALT 19 Alkaline Phosphatase 61 Total Protein 6.1 L Albumin 2.3 L Globulin 3.8 Albumin/Globulin Ratio 0.6 L Nasal Screen MRSA (PCR) Pending Blood Type Antibody Screen Crossmatch Medications Administered Atorvastatin Calcium (Lipitor) 20 mg PO QPM SAUL Stop: 07/18/19 20:59 Last Admin: 06/18/19 20:22 Dose: 20 mg Documented by: [id number] Diltiazem HCl (Cardizem Cd) 180 mg PO QAM SAUL Stop: 07/18/19 10:09 Last Admin: 06/19/19 08:12 Dose: Not Given Documented by: [id number] Admin: 06/18/19 11:12 Dose: 180 mg Documented by: [id number] Divalproex Sodium (Depakote Sprinkle) 375 mg PO 1230 [facility] Stop: 07/18/19 12:29 Last Admin: 06/19/19 13:58 Dose: Not Given Documented by: [id number] Admin: 06/18/19 12:04 Dose: 375 mg Documented by: [id number] Divalproex Sodium (Depakote Sprinkle) 500 mg PO 0830,1630 SAUL Stop: 07/18/19 16:29 Last Admin: 06/19/19 08:13 Dose: Not Given Documented by: [id number] Admin: 06/18/19 16:34 Dose: 500 mg Documented by: [id number] Fluvoxamine Maleate (Luvox) 100 mg PO BID [facility] Stop: 07/18/19 10:09 Last Admin: 06/19/19 08:11 Dose: Not Given Documented by: [id number] Admin: 06/18/19 20:22 Dose: 100 mg Documented by: [id number] Admin: 06/18/19 12:04 Dose: 100 mg Documented by: [id number] Insulin Aspart (Novolog Flexpen) 0 units SC ACHS [facility] Stop: 07/18/19 11:29 Last Admin: 06/19/19 13:10 Dose: Not Given Documented by: [id number] Cosigned by: [id number] Admin: 06/19/19 08:06 Dose: 3 units Documented by: [id number] Cosigned by: [id number] Admin: 06/18/19 20:24 Dose: 1 units Documented by: [id number] Cosigned by: [id number] Admin: 06/18/19 17:36 Dose: 2 units Documented by: [id number] Cosigned by: [id number] Admin: 06/18/19 13:09 Dose: 3 units Documented by: [id number] Cosigned by: [id number] Lansoprazole (Prevacid) 30 mg PO DAILY [facility] Stop: 07/18/19 10:09 Last Admin: 06/19/19 08:11 Dose: Not Given Documented by: [id number] Admin: 06/18/19 12:04 Dose: 30 mg Documented by: [id number] Levothyroxine Sodium (Levothyroxine Sodium) 137 mcg PO DAILYBB [facility] Stop: 07/18/19 10:09 Last Admin: 06/19/19 05:49 Dose: 137 mcg Documented by: [id number] Admin: 06/18/19 11:12 Dose: 137 mcg Documented by: [id number] Lorazepam (Ativan) 0.25 mg PO BID PRN PRN Reason: Agitation Stop: 07/18/19 10:09 Last Admin: 06/19/19 06:20 Dose: 0.25 mg Documented by: [id number] Admin: 06/18/19 15:25 Dose: 0.25 mg Documented by: [id number] Miscellaneous (Order Awaiting Action) 1 ea N/A QS [facility] Stop: 07/18/19 15:59 Last Admin: 06/19/19 07:59 Dose: Not Given Documented by: [id number] Admin: 06/19/19 00:33 Dose: Not Given Documented by: [id number] Admin: 06/18/19 15:46 Dose: Not Given Documented by: [id number] Multivitamins/Minerals (Multivitamin W/ Minerals Tab) 1 tab PO QAM [facility] Stop: 07/18/19 10:09 Last Admin: 06/19/19 08:11 Dose: Not Given Documented by: [id number] Admin: 06/18/19 12:04 Dose: 1 tab Documented by: [id number] PG Care Time/CCT Total # of Minutes Spent Total Time Spent with Patient: Total time spent is greater than 50% in coordination of care (as documented) at patient's floor/unit and/or counseling patient: Resident Activity Tracking Resident Involvement: Resident Care Provided Care Provided: Adult Hospital Medicine (ICU) (1) Abdominal wall hematoma Encounter type: initial encounter Qualified Code(s): S30.1XXA - Contusion of abdominal wall, initial encounter
[2019-06-19 13:30] LABS: Alanine Aminotransferase 19 U/L (12-78); Albumin Level 2.3 gm/dl (3.4-5.0); Aspartate Aminotransferase 14 U/L (15-37); BUN Creatinine Ratio 32.5 (10-20); Blood Urea Nitrogen 21 mg/dl (7-18); Calcium 8.5 mg/dl (8.5-10.1); Carbon Dioxide 27 mmol/L (21-32); Chloride 105 mmol/L (98-107); Est GFR (African American) 101.7; Est GFR (Non-African American) 87.7; Glucose 152 mg/dl (70-99); Potassium 4.6 mmol/L (3.5-5.1); Sodium 137 mmol/L (136-145)
[2019-06-19] MEDS ORDERED: CIPROFLOXACIN 400 MG/200 ML BAG IV ONE (13:30)
[2019-06-19 13:33] LABS: Albumin Globulin Ratio 0.6 (0.9-2); Alkaline Phosphatase 61 U/L (45-117); Bilirubin,Total 0.4 mg/dl (0.2-1); Globulin 3.8 gm/dl (2.5-4.0); Phosphorus 4.7 mg/dl (2.5-4.9); Total Protein 6.1 gm/dl (6.4-8.2)
[2019-06-19 13:52] LABS: Estimated Average Glucose 148 mg/dl; Hemoglobin A1C 6.8 % (4.5-5.6)
[2019-06-19 13:54] LABS: Basophils # (auto) 0.02 K/uL (0-0.2); Basophils % (auto) 0.1 %; Echinocytes 1+; Eosinophils # (auto) 0.02 K/uL (0-0.5); Eosinophils % (auto) 0.1 %; Hematocrit (blood only) 31.5 % (37-47); Hemoglobin 10.2 g/dL (12.0-16.0); Immature Granulocytes # (auto) 0.18 K/uL (0.00-0.02); Immature Granulocytes % (auto) 0.9 %; Lymphocytes # (auto) 1.22 K/uL (1.2-3.4); Lymphocytes % (auto) 6.2 %; Mean Corpuscular Hgb Conc 32.4 g/dL (32-36); Mean Corpuscular Volume 86.5 fL (80-100); Mean Platelet Volume 12.3 fL (7.4-10.4); Monocytes # (auto) 1.31 K/uL (0.11-0.59); Monocytes % (auto) 6.7 %; Neutrophils # (auto) 16.78 K/uL (1.4-6.5); Platelet Count 123 K/uL (130-400); Platelet Estimate Normal (Normal); RDW Standard Deviation 54.2 fL (36.4-46.3); Red Blood Count 3.64 M/uL (4.2-5.4); White Blood Count 19.53 K/uL (4.8-10.8)
--- NOTE | 2019-06-19 13:57 | XRay Report ---
XR chest 1V portable CLINICAL HISTORY: Post op hemoptysis; coarse breath sounds dyspnea COMPARISON STUDY: 02/21/2018 FINDINGS: Diffuse bilateral interstitial prominence. Components of this are chronic although superimp osed component of early interstitial edema is considered. No well-defined focal or consolidative infiltrates. IMPRESSION: Diffuse chronic interstitial change with evidence for superimposed early pulmonary edema tous change. The above report was generated using voice recognition software. It may contain grammatical, syntax or spelling errors. Electronically signed by: Ramses Santos M.D. 06/19/2019 1:56 PM
[2019-06-19] MEDS: PATIENT'S HEIGHT AND/OR WEIGHT NEEDED SCH ×5 (15:04→21:09)
[2019-06-19] MEDS: ACETAMINOPHEN SOL 650 MG/20.3 ML UDC PO SCH ×2 (15:08→18:21)
[2019-06-19] MEDS: ATORVASTATIN 20 MG TAB PO SCH (20:41)
[2019-06-20] MEDS: ACETAMINOPHEN SOL 650 MG/20.3 ML UDC PO SCH ×5 (00:16→23:32)
[2019-06-20] MEDS: CIPROFLOXACIN 400 MG/200 ML BAG IV SCH ×2 (02:27→14:22)
[2019-06-20 04:25] LABS: Basophils # (auto) 0.01 K/uL (0-0.2); Basophils % (auto) 0.1 %; Hematocrit (blood only) 27.1 % (37-47); Hemoglobin 8.8 g/dL (12.0-16.0); Immature Granulocytes # (auto) 0.11 K/uL (0.00-0.02); Immature Granulocytes % (auto) 0.8 %; Lymphocytes # (auto) 1.36 K/uL (1.2-3.4); Mean Corpuscular Hemoglobin 28.4 pg (25-34); Mean Corpuscular Hgb Conc 32.5 g/dL (32-36); Mean Corpuscular Volume 87.4 fL (80-100); Mean Platelet Volume 11.6 fL (7.4-10.4); Monocytes # (auto) 0.99 K/uL (0.11-0.59); Monocytes % (auto) 7.3 %; Neutrophils # (auto) 11.07 K/uL (1.4-6.5); Neutrophils % (auto) 81.8 %; Platelet Count 122 K/uL (130-400); RDW Coefficient of Variation 17.2 % (11.5-14.5); RDW Standard Deviation 54.7 fL (36.4-46.3); White Blood Count 13.54 K/uL (4.8-10.8)
[2019-06-20 04:43] LABS: Alanine Aminotransferase 18 U/L (12-78); Albumin Level 2.2 gm/dl (3.4-5.0); Aspartate Aminotransferase 12 U/L (15-37); BUN Creatinine Ratio 26.2 (10-20); Bilirubin Direct < 0.1 mg/dl (0-0.2); Blood Urea Nitrogen 20 mg/dl (7-18); Calcium 8.4 mg/dl (8.5-10.1); Carbon Dioxide 28 mmol/L (21-32); Chloride 105 mmol/L (98-107); Est GFR (African American) 90.4; Glucose 189 mg/dl (70-99); Magnesium 1.5 mg/dl (1.8-2.4); Potassium 4.6 mmol/L (3.5-5.1); Sodium 138 mmol/L (136-145)
[2019-06-20 04:51] LABS: Alkaline Phosphatase 56 U/L (45-117); Bilirubin,Total 0.3 mg/dl (0.2-1); Phosphorus 3.7 mg/dl (2.5-4.9); Total Protein 6.1 gm/dl (6.4-8.2)
[2019-06-20] MEDS ORDERED: MAGNESIUM SULFATE / D5W 1 GM/100 ML BAG IV ONE (05:41)
[2019-06-20] MEDS: LEVOTHYROXINE SODIUM 137 MCG TABLET PO SCH (06:01)
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
--- NOTE | 2019-06-20 06:29 | Critical Care Progress Note ---
Date of Service June 20, 2019 Assessment & Plan (1) Abdominal wall hematoma: Reason Critically Ill: Post-op with evacuation of large abdominal wall hematoma secondary to iatrogenic injury occurring [employer]SEM[employer] from Lovenox injection. Neuro: Sleepy but arouses to voice; follows simple commands. continue with home depakote continue with home fluvoxamine Cardiac/Vascular PMHx: HTN, HLD Hemodynamically stable; tachycardia from post-op resolved Continue cardiac monitoring continue with home Lipitor qPM continue with home Diltiazem 180mg qAM Pulm: Currently Post-op with respiratory depression from pre-op pain narcotic requirements from Hematoma. On NC 2L with adequate oxygenation 96% SpO2; improved from post-op No further signs of hemoptysis from post-op yesterday. A CXR was ordered to rule out pneum/hemo thorax and was negative for acute injury/process. GI: diabetic diet pureed continue with home Lansoprazole 30mg daily continue with home Multivitamin Renal/Lytes Post-op lab work did not show any electrolyte abnormalities IVFs NSS @ 50mL/hr : [facility]: Hx of DM2 with recent A1C 6.8 - at goal Hx Hypothyroid - continue with Levothyroxine 137mcg daily Heme: WBC 13.5, improved most likely stress response to illness; no signs for active infection Hgb 8.8 and stable, received 2 units pRBCs; no further signs of bleeding Platelets mildly low at 122, but stable, most likely related to sequestration from hematoma ID: No signs of active infectious process Lines: Peripheral IVs DVT ppx: Chemical currently contraindicated. Will defer to primary team for further management. Resuscitation Status: DNR/DNI - family at bedside conveys. (2) Acute blood loss anemia: Supervising Physician Co-Signing Physician Notes Dr. Rodriguez was resident physician during care of patient. I separately evaluated patient for ruiz portions of the history and the exam. I was present during the critical portion of medical decision making, and I discussed the case with the resident. I generally agree with the findings and plan. H&H remains stable, patient asymptomatic stable for downgrade out of the ICU. Deferring systemic anticoagulation decision to primary team at this time. Subjective Patient was seen and examined this morning. She is resting with comfort. No acute events reported overnight. Physical Exam Constitutional: + thin and comfortable Eyes: PERRL ENMT: external ear and nose normal, oropharynx normal Nose: no epistaxis Mouth: no tongue abnormality Neck: normal visual inspection and trachea midline; no neck crepitus and no anterior neck swelling Respiratory: no respiratory distress Cardiovascular: Rate/Rhythm: regular rate and regular rhythm Heart Sounds: + murmur (+2/6 systolic) Extremities: no pedal edema Gastrointestinal (Abdomen): Percussion/Palpation: abdomen soft; no guarding and abdomen not rigid abdominal dressing clean, dry, intact with JHONATAN drains visualized. Musculoskeletal: right lateral proximal lower extremity ecchymosis Skin: no rashes, warm and dry + pallor Results & Data Vital Signs (Past 12 Hours) Vital Signs Temp Pulse Resp BP Pulse Ox 06/20/19 06:00 85 14 130/62 100 06/20/19 05:00 84 18 108/59 L 100 06/20/19 04:00 36.8 C 94 H 25 H 120/66 100 06/20/19 03:00 89 20 112/64 99 06/20/19 02:00 89 20 114/58 L 100 06/20/19 01:00 81 13 105/58 L 100 06/20/19 00:30 85 15 100 06/20/19 00:00 36.5 C 88 16 93/54 L 97 06/19/19 23:00 86 14 109/68 100 06/19/19 22:00 85 13 97/59 L 100 06/19/19 21:00 94 H 21 124/53 L 98 06/19/19 20:00 36.7 C 89 23 90/51 L 98 06/19/19 19:00 97 H 15 87/55 L 96 Laboratory Results Laboratory Results - last 24 hr 06/18/19 06/19/19 06/19/19 11:59 07:27 11:42 WBC RBC Hgb Hct MCV MCH MCHC RDW Std Deviation RDW Coeff of Ronald Plt Count MPV Immature Gran % (Auto) Neut % (Auto) Lymph % (Auto) Troup % (Auto) Eos % (Auto) Baso % (Auto) Immature Gran # (Auto) Neut # (Auto) Lymph # (Auto) Troup # (Auto) Eos # (Auto) Baso # (Auto) Platelet Estimate Echinocytes Sodium Potassium Chloride Carbon Dioxide Anion Gap BUN Creatinine Est Cr Clr Drug Dosing Est GFR ( Amer) Est GFR (Non-Af Amer) BUN/Creatinine Ratio Glucose POC Glucose 209 H 126 H Estimat Average Glucose Hemoglobin A1c Calcium Phosphorus Magnesium Total Bilirubin Direct Bilirubin AST ALT Alkaline Phosphatase Total Protein Albumin Globulin Albumin/Globulin Ratio Nasal Screen MRSA (PCR) Blood Type O Positive Antibody Screen NEGATIVE Crossmatch See Detail 06/19/19 06/19/19 06/19/19 12:56 12:56 13:00 WBC 19.53 H RBC 3.64 L Hgb 10.2 L Hct 31.5 L MCV 86.5 MCH 28.0 MCHC 32.4 RDW Std Deviation 54.2 H RDW Coeff of Ronald 17.0 H Plt Count 123 L MPV 12.3 H Immature Gran % (Auto) 0.9 Neut % (Auto) 86.0 Lymph % (Auto) 6.2 Troup % (Auto) 6.7 Eos % (Auto) 0.1 Baso % (Auto) 0.1 Immature Gran # (Auto) 0.18 H Neut # (Auto) 16.78 H Lymph # (Auto) 1.22 Troup # (Auto) 1.31 H Eos # (Auto) 0.02 Baso # (Auto) 0.02 Platelet Estimate Normal Echinocytes 1+ Sodium Cancelled Potassium Cancelled Chloride Cancelled Carbon Dioxide Cancelled Anion Gap Cancelled BUN Cancelled Creatinine Cancelled Est Cr Clr Drug Dosing Cancelled Est GFR ( Amer) Cancelled Est GFR (Non-Af Amer) Cancelled BUN/Creatinine Ratio Cancelled Glucose Cancelled POC Glucose Estimat Average Glucose Hemoglobin A1c Calcium Cancelled Phosphorus Magnesium Total Bilirubin Direct Bilirubin AST ALT Alkaline Phosphatase Total Protein Albumin Globulin Albumin/Globulin Ratio Nasal Screen MRSA (PCR) Negative Blood Type Antibody Screen Crossmatch 06/19/19 06/19/19 06/19/19 13:05 13:05 15:41 WBC RBC Hgb Hct MCV MCH MCHC RDW Std Deviation RDW Coeff of Ronald Plt Count MPV Immature Gran % (Auto) Neut % (Auto) Lymph % (Auto) Troup % (Auto) Eos % (Auto) Baso % (Auto) Immature Gran # (Auto) Neut # (Auto) Lymph # (Auto) Troup # (Auto) Eos # (Auto) Baso # (Auto) Platelet Estimate Echinocytes Sodium 137 Potassium 4.6 Chloride 105 Carbon Dioxide 27 Anion Gap 5.0 BUN 21 H Creatinine 0.63 Est Cr Clr Drug Dosing Not Reportable Est GFR ( Amer) 101.7 Est GFR (Non-Af Amer) 87.7 BUN/Creatinine Ratio 32.5 H Glucose 152 H POC Glucose 220 H Estimat Average Glucose 148 Hemoglobin A1c 6.8 H Calcium 8.5 Phosphorus 4.7 Magnesium Total Bilirubin 0.4 Direct Bilirubin AST 14 L ALT 19 Alkaline Phosphatase 61 Total Protein 6.1 L Albumin 2.3 L Globulin 3.8 Albumin/Globulin Ratio 0.6 L Nasal Screen MRSA (PCR) Blood Type Antibody Screen Crossmatch 06/19/19 06/20/19 06/20/19 20:38 04:12 04:12 WBC 13.54 H RBC 3.10 L Hgb 8.8 L Hct 27.1 L MCV 87.4 MCH 28.4 MCHC 32.5 RDW Std Deviation 54.7 H RDW Coeff of Ronald 17.2 H Plt Count 122 L MPV 11.6 H Immature Gran % (Auto) 0.8 Neut % (Auto) 81.8 Lymph % (Auto) 10.0 Troup % (Auto) 7.3 Eos % (Auto) 0.0 Baso % (Auto) 0.1 Immature Gran # (Auto) 0.11 H Neut # (Auto) 11.07 H Lymph # (Auto) 1.36 Troup # (Auto) 0.99 H Eos # (Auto) 0.00 Baso # (Auto) 0.01 Platelet Estimate Echinocytes Sodium 138 Potassium 4.6 Chloride 105 Carbon Dioxide 28 Anion Gap 5.0 BUN 20 H Creatinine 0.75 Est Cr Clr Drug Dosing Not Reportable Est GFR ( Amer) 90.4 Est GFR (Non-Af Amer) 78.0 BUN/Creatinine Ratio 26.2 H Glucose 189 H POC Glucose 211 H Estimat Average Glucose Hemoglobin A1c Calcium 8.4 L Phosphorus 3.7 D Magnesium 1.5 L Total Bilirubin 0.3 Direct Bilirubin < 0.1 AST 12 L ALT 18 Alkaline Phosphatase 56 Total Protein 6.1 L Albumin 2.2 L Globulin Albumin/Globulin Ratio Nasal Screen MRSA (PCR) Blood Type Antibody Screen Crossmatch Medications Administered Acetaminophen (Tylenol) 650 mg PO Q6 SAUL Stop: 07/19/19 14:14 Last Admin: 06/20/19 06:01 Dose: 650 mg Documented by: [id number] Admin: 06/20/19 00:16 Dose: Not Given Documented by: [id number] Admin: 06/19/19 18:21 Dose: 650 mg Documented by: [id number] Admin: 06/19/19 15:08 Dose: 650 mg Documented by: [id number] Atorvastatin Calcium (Lipitor) 20 mg PO QPM SAUL Stop: 07/18/19 20:59 Last Admin: 06/19/19 20:41 Dose: 20 mg Documented by: [id number] Admin: 06/18/19 20:22 Dose: 20 mg Documented by: [id number] Diltiazem HCl (Cardizem Cd) 180 mg PO QAM SAUL Stop: 07/18/19 10:09 Last Admin: 06/19/19 08:12 Dose: Not Given Documented by: [id number] Admin: 06/18/19 11:12 Dose: 180 mg Documented by: [id number] Divalproex Sodium (Depakote Sprinkle) 375 mg PO 1230 PENDING SALE TO [facility] Stop: 07/18/19 12:29 Last Admin: 06/19/19 13:58 Dose: Not Given Documented by: [id number] Admin: 06/18/19 12:04 Dose: 375 mg Documented by: [id number] Divalproex Sodium (Depakote Sprinkle) 500 mg PO 0830,1630 PENDING SALE TO [facility] Stop: 07/18/19 16:29 Last Admin: 06/19/19 16:58 Dose: 500 mg Documented by: [id number] Admin: 06/19/19 08:13 Dose: Not Given Documented by: [id number] Admin: 06/18/19 16:34 Dose: 500 mg Documented by: [id number] Fluvoxamine Maleate (Luvox) 100 mg PO BID PENDING SALE TO [facility] Stop: 07/18/19 10:09 Last Admin: 06/19/19 20:41 Dose: 100 mg Documented by: [id number] Admin: 06/19/19 08:11 Dose: Not Given Documented by: [id number] Admin: 06/18/19 20:22 Dose: 100 mg Documented by: [id number] Admin: 06/18/19 12:04 Dose: 100 mg Documented by: [id number] Ciprofloxacin (Cipro) 400 mg in 200 mls @ 100 mls/hr IV Q12H SAUL Stop: 06/30/19 01:59 Last Infusion: 06/20/19 04:50 Dose: 0 mls/hr Documented by: [id number] Admin: 06/20/19 02:27 Dose: 100 mls/hr Documented by: [id number] Magnesium Sulfate/Dextrose (Magnesium Sulfate / D5w) 1 gm in 100 mls @ 100 mls/hr IV ONE ONE Stop: 06/20/19 06:40 Last Admin: 06/20/19 06:01 Dose: 100 mls/hr Documented by: [id number] Insulin Aspart (Novolog Flexpen) 0 units SC ACHS PENDING SALE TO [facility] Stop: 07/18/19 11:29 Last Admin: 06/19/19 20:44 Dose: 3 units Documented by: [id number] Cosigned by: [id number] Admin: 06/19/19 17:09 Dose: 3 units Documented by: [id number] Cosigned by: [id number] Admin: 06/19/19 13:10 Dose: Not Given Documented by: [id number] Cosigned by: [id number] Admin: 06/19/19 08:06 Dose: 3 units Documented by: [id number] Cosigned by: [id number] Admin: 06/18/19 20:24 Dose: 1 units Documented by: [id number] Cosigned by: [id number] Admin: 06/18/19 17:36 Dose: 2 units Documented by: [id number] Cosigned by: [id number] Admin: 06/18/19 13:09 Dose: 3 units Documented by: [id number] Cosigned by: [id number] Lansoprazole (Prevacid) 30 mg PO DAILY PENDING SALE TO [facility] Stop: 07/18/19 10:09 Last Admin: 06/19/19 08:11 Dose: Not Given Documented by: [id number] Admin: 06/18/19 12:04 Dose: 30 mg Documented by: [id number] Levothyroxine Sodium (Levothyroxine Sodium) 137 mcg PO DAILYBB PENDING SALE TO [facility] Stop: 07/18/19 10:09 Last Admin: 06/20/19 06:01 Dose: 137 mcg Documented by: [id number] Admin: 06/19/19 05:49 Dose: 137 mcg Documented by: [id number] Admin: 06/18/19 11:12 Dose: 137 mcg Documented by: [id number] Lorazepam (Ativan) 0.25 mg PO BID PRN PRN Reason: Agitation Stop: 07/18/19 10:09 Last Admin: 06/19/19 20:52 Dose: 0.25 mg Documented by: [id number] Admin: 06/19/19 06:20 Dose: 0.25 mg Documented by: [id number] Admin: 06/18/19 15:25 Dose: 0.25 mg Documented by: [id number] Miscellaneous (Order Awaiting Action) 1 ea N/A QS PENDING SALE TO [facility] Stop: 07/18/19 15:59 Last Admin: 06/20/19 00:15 Dose: Not Given Documented by: [id number] Admin: 06/19/19 17:31 Dose: 1 ea Documented by: [id number] Admin: 06/19/19 07:59 Dose: Not Given Documented by: [id number] Admin: 06/19/19 00:33 Dose: Not Given Documented by: [id number] Admin: 06/18/19 15:46 Dose: Not Given Documented by: [id number] Multivitamins/Minerals (Multivitamin W/ Minerals Tab) 1 tab PO QAM PENDING SALE TO [facility] Stop: 07/18/19 10:09 Last Admin: 06/19/19 08:11 Dose: Not Given Documented by: [id number] Admin: 06/18/19 12:04 Dose: 1 tab Documented by: [id number] PG Care Time/CCT Total # of Minutes Spent Total Time Spent with Patient: Total time spent is greater than 50% in coordination of care (as documented) at patient's floor/unit and/or counseling patient: Resident Activity Tracking Resident Involvement: Resident Care Provided Care Provided: Adult Hospital Medicine (1) Abdominal wall hematoma Encounter type: initial encounter Qualified Code(s): S30.1XXA - Contusion of abdominal wall, initial encounter
[2019-06-20] MEDS: DIVALPROEX SODIUM SPRINKLE 125 MG CAP PO SCH ×3 (07:38→18:02)
[2019-06-20] MEDS: dilTIAZem HCL 180 MG CAPCR PO SCH (07:39)
[2019-06-20] MEDS: FLUVOXAMINE MALEATE 50 MG TAB PO SCH ×2 (07:40→20:31)
[2019-06-20] MEDS: CEROVITE ADV FORMULA TAB PO SCH (07:40)
--- NOTE | 2019-06-20 07:40 | Surgery Progress Note ---
Date of Service June 20, 2019 Assessment & Plan (1) Abdominal wall hematoma: POD 1 evacuation of hematoma seen with Dr. Lyle Hgb down from 10.2 to 8.8 ok for transfer out of ICU from our standpoint Subjective somnolent Physical Exam Gastrointestinal (Abdomen): Inspection/Auscultation: + abdominal surgical incision (clean, dry, flank/hip ecchymosis) and + abdominal surgical drain present (approx 10 cc from each per shift) Results & Data Vital Signs (Past 12 Hours) Vital Signs Temp Pulse Resp BP Pulse Ox 06/20/19 06:00 85 14 130/62 100 06/20/19 05:00 84 18 108/59 L 100 06/20/19 04:00 36.8 C 94 H 25 H 120/66 100 06/20/19 03:00 89 20 112/64 99 06/20/19 02:00 89 20 114/58 L 100 06/20/19 01:00 81 13 105/58 L 100 06/20/19 00:30 85 15 100 06/20/19 00:00 36.5 C 88 16 93/54 L 97 06/19/19 23:00 86 14 109/68 100 06/19/19 22:00 85 13 97/59 L 100 06/19/19 21:00 94 H 21 124/53 L 98 06/19/19 20:00 36.7 C 89 23 90/51 L 98 PG Care Time/CCT Total # of Minutes Spent Total Time Spent with Patient: Total time spent is greater than 50% in coordination of care (as documented) at patient's floor/unit and/or counseling patient: (1) Abdominal wall hematoma Encounter type: initial encounter Qualified Code(s): S30.1XXA - Contusion of abdominal wall, initial encounter
[2019-06-20] MEDS: LANSOPRAZOLE 30 MG SOLTAB PO SCH (07:41)
[2019-06-20] MEDS: INSULIN ASPART 100 UNITS/ML 3 ML PEN SC SCH ×4 (08:41→22:01)
[2019-06-20 10:59] LABS: Hematocrit (blood only) 25.3 % (37-47); Hemoglobin 8.2 g/dL (12.0-16.0)
[2019-06-20] MEDS: MODAFINIL 100 MG TAB PO SCH (11:42)
[2019-06-20] MEDS: PATIENT'S HEIGHT AND/OR WEIGHT NEEDED SCH (15:33)
[2019-06-20 16:46] LABS: Hematocrit (blood only) 23.2 % (37-47); Hemoglobin 7.5 g/dL (12.0-16.0); Mean Corpuscular Hemoglobin 28.6 pg (25-34); Mean Corpuscular Hgb Conc 32.3 g/dL (32-36); Mean Corpuscular Volume 88.5 fL (80-100); Platelet Count 120 K/uL (130-400); Platelet Estimate Normal (Normal); RDW Coefficient of Variation 17.5 % (11.5-14.5); RDW Standard Deviation 56.3 fL (36.4-46.3); Red Blood Count 2.62 M/uL (4.2-5.4); White Blood Count 10.48 K/uL (4.8-10.8)
[2019-06-20] MEDS ORDERED: SODIUM CHLORIDE 0.9% 250 ML IV PRN (19:29)
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
[2019-06-20] MEDS: ATORVASTATIN 20 MG TAB PO SCH (20:31)
[2019-06-21] MEDS: CIPROFLOXACIN 400 MG/200 ML BAG IV SCH ×2 (03:08→14:07)
[2019-06-21] MEDS: ACETAMINOPHEN SOL 650 MG/20.3 ML UDC PO SCH ×4 (05:47→23:49)
[2019-06-21] MEDS: LEVOTHYROXINE SODIUM 137 MCG TABLET PO SCH (06:00)
[2019-06-21 07:11] LABS: Hematocrit (blood only) 31.2 % (37-47); Hemoglobin 10.3 g/dL (12.0-16.0); Mean Corpuscular Hemoglobin 28.9 pg (25-34); Mean Corpuscular Volume 87.4 fL (80-100); Nucleated RBC # (auto) 0.04 K/uL (0-0); Nucleated RBC % (auto) 0.4 %; Platelet Count 129 K/uL (130-400); RDW Coefficient of Variation 16.9 % (11.5-14.5); RDW Standard Deviation 54.2 fL (36.4-46.3); Red Blood Count 3.57 M/uL (4.2-5.4)
[2019-06-21 07:12] LABS: Basophils # (auto) 0.02 K/uL (0-0.2); Basophils % (auto) 0.2 %; Eosinophils # (auto) 0.41 K/uL (0-0.5); Eosinophils % (auto) 4.6 %; Immature Granulocytes % (auto) 1.1 %; Lymphocytes # (auto) 2.25 K/uL (1.2-3.4); Lymphocytes % (auto) 25.3 %; Monocytes # (auto) 0.74 K/uL (0.11-0.59); Monocytes % (auto) 8.3 %; Neutrophils # (auto) 5.38 K/uL (1.4-6.5); Neutrophils % (auto) 60.5 %
[2019-06-21 07:17] LABS: BUN Creatinine Ratio 25.1 (10-20); Blood Urea Nitrogen 15 mg/dl (7-18); Calcium 8.5 mg/dl (8.5-10.1); Carbon Dioxide 29 mmol/L (21-32); Chloride 106 mmol/L (98-107); Est GFR (African American) 104.5; Est GFR (Non-African American) 90.2; Glucose 134 mg/dl (70-99); Sodium 140 mmol/L (136-145)
[2019-06-21] MEDS: INSULIN ASPART 100 UNITS/ML 3 ML PEN SC SCH ×4 (08:15→20:15)
[2019-06-21] MEDS: CEROVITE ADV FORMULA TAB PO SCH (08:17)
[2019-06-21] MEDS: DIVALPROEX SODIUM SPRINKLE 125 MG CAP PO SCH ×3 (08:17→17:27)
[2019-06-21] MEDS: dilTIAZem HCL 180 MG CAPCR PO SCH (08:18)
[2019-06-21] MEDS: FLUVOXAMINE MALEATE 50 MG TAB PO SCH ×2 (08:18→20:14)
[2019-06-21] MEDS: LANSOPRAZOLE 30 MG SOLTAB PO SCH (08:19)
[2019-06-21] MEDS: MODAFINIL 100 MG TAB PO SCH (08:26)
--- NOTE | 2019-06-21 09:24 | Surgery Progress Note ---
Date of Service June 21, 2019 Assessment & Plan (1) Abdominal wall hematoma: POD 2 evacuation of hematoma H&H stable after transfusion yesterday keep drains for now Subjective "little bit" of abdominal pain Physical Exam Gastrointestinal (Abdomen): Inspection/Auscultation: + abdominal surgical incision (clean, dry, no recurring hematoma, ecchymosis similar) and + abdominal surgical drain present (10 cc from #1) Results & Data Vital Signs (Past 12 Hours) Vital Signs Temp Pulse Pulse Resp BP BP BP 06/21/19 07:13 36.5 C 74 16 117/62 06/21/19 03:26 37 C 82 16 104/56 L 06/21/19 01:56 36.8 C 87 18 118/62 06/21/19 01:10 36.8 C 80 20 146/72 H 06/21/19 01:03 36.5 C 80 20 111/59 L 06/21/19 00:56 36.5 C 80 20 111/59 L 06/21/19 00:26 36.8 C 83 18 121/65 06/21/19 00:11 36.8 C 78 16 126/67 06/21/19 00:00 79 06/20/19 23:51 36.9 C 78 109/58 L 06/20/19 23:26 36.5 C 82 16 106/60 06/20/19 23:15 36.5 C 80 18 111/59 L 06/20/19 22:15 36.5 C 76 18 113/52 L 06/20/19 22:07 36.5 C 76 18 113/52 L 06/20/19 22:06 36.5 C 81 18 94/58 L Pulse Ox 06/21/19 07:13 94 06/21/19 03:26 94 06/21/19 01:56 95 06/21/19 01:10 95 06/21/19 01:03 92 06/21/19 00:56 92 06/21/19 00:26 94 06/21/19 00:11 95 06/21/19 00:00 06/20/19 23:51 95 06/20/19 23:26 93 06/20/19 23:15 92 06/20/19 22:15 95 06/20/19 22:07 95 06/20/19 22:06 95 PG Care Time/CCT Total # of Minutes Spent Total Time Spent with Patient: Total time spent is greater than 50% in coordination of care (as documented) at patient's floor/unit and/or counseling patient: (1) Abdominal wall hematoma Encounter type: initial encounter Qualified Code(s): S30.1XXA - Contusion of abdominal wall, initial encounter
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
[2019-06-21] MEDS: ATORVASTATIN 20 MG TAB PO SCH (20:13)
[2019-06-22] MEDS: CIPROFLOXACIN 400 MG/200 ML BAG IV SCH (02:17)
[2019-06-22] MEDS: ACETAMINOPHEN SOL 650 MG/20.3 ML UDC PO SCH ×3 (06:16→18:39)
[2019-06-22] MEDS: LEVOTHYROXINE SODIUM 137 MCG TABLET PO SCH (06:17)
[2019-06-22 06:47] LABS: Basophils # (auto) 0.02 K/uL (0-0.2); Basophils % (auto) 0.3 %; Eosinophils # (auto) 0.54 K/uL (0-0.5); Eosinophils % (auto) 7.1 %; Hematocrit (blood only) 35.7 % (37-47); Hemoglobin 11.5 g/dL (12.0-16.0); Immature Granulocytes # (auto) 0.11 K/uL (0.00-0.02); Immature Granulocytes % (auto) 1.4 %; Lymphocytes # (auto) 1.65 K/uL (1.2-3.4); Lymphocytes % (auto) 21.7 %; Mean Corpuscular Hemoglobin 28.5 pg (25-34); Mean Corpuscular Hgb Conc 32.2 g/dL (32-36); Mean Corpuscular Volume 88.6 fL (80-100); Mean Platelet Volume 11.4 fL (7.4-10.4); Monocytes # (auto) 0.64 K/uL (0.11-0.59); Monocytes % (auto) 8.4 %; Neutrophils # (auto) 4.65 K/uL (1.4-6.5); Neutrophils % (auto) 61.1 %; Platelet Count 178 K/uL (130-400); RDW Coefficient of Variation 17.6 % (11.5-14.5); RDW Standard Deviation 56.8 fL (36.4-46.3); Red Blood Count 4.03 M/uL (4.2-5.4); White Blood Count 7.61 K/uL (4.8-10.8)
--- NOTE | 2019-06-22 07:19 | Surgery Progress Note ---
Date of Service June 22, 2019 Assessment & Plan (1) Abdominal wall hematoma: 06/22/19- POD#3 evacuation of abdominal wall hematoma Hbg up to 11.5 Vital signs stable Surgical site healing well We removed one JHONATAN drain today, will plan on removing 2nd likely tomorrow Patient seen and examined with Dr. Lyle Subjective Patient drowsy, but arousable. No complaints offered. Physical Exam Physical Exam: drowsy, but arousable Gastrointestinal (Abdomen): Inspection/Auscultation: + abdominal surgical incision (c/d/i with surgical ashley) Percussion/Palpation: abdomen soft JHONATAN x2 with serosang. drainage; #1 (20cc) and #2 (25cc) Results & Data Vital Signs (Past 12 Hours) Vital Signs Temp Pulse Pulse Resp BP Pulse Ox 06/22/19 07:13 36.2 C L 81 16 135/71 97 06/22/19 04:20 36.7 C 66 18 128/73 95 06/21/19 23:57 81 06/21/19 23:00 36.5 C 77 16 113/65 94 06/21/19 22:57 76 PG Care Time/CCT Total # of Minutes Spent Total Time Spent with Patient: Total time spent is greater than 50% in coordination of care (as documented) at patient's floor/unit and/or counseling patient: (1) Abdominal wall hematoma Encounter type: initial encounter Qualified Code(s): S30.1XXA - Contusion of abdominal wall, initial encounter
[2019-06-22] MEDS: DIVALPROEX SODIUM SPRINKLE 125 MG CAP PO SCH ×3 (07:53→17:09)
[2019-06-22] MEDS: CEROVITE ADV FORMULA TAB PO SCH (07:59)
[2019-06-22] MEDS: FLUVOXAMINE MALEATE 50 MG TAB PO SCH ×2 (08:02→20:31)
[2019-06-22] MEDS: dilTIAZem HCL 180 MG CAPCR PO SCH (08:03)
[2019-06-22] MEDS: LANSOPRAZOLE 30 MG SOLTAB PO SCH (08:04)
[2019-06-22] MEDS: INSULIN ASPART 100 UNITS/ML 3 ML PEN SC SCH ×4 (08:11→20:32)
[2019-06-22] MEDS: MODAFINIL 100 MG TAB PO SCH (09:33)
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
[2019-06-22] MEDS: LORazepam 0.5 MG TAB PO PRN (18:39)
[2019-06-22] MEDS: CIPROFLOXACIN 500 MG TAB PO SCH (20:31)
[2019-06-22] MEDS: ATORVASTATIN 20 MG TAB PO SCH (20:31)
[2019-06-23] MEDS: ACETAMINOPHEN SOL 650 MG/20.3 ML UDC PO SCH ×3 (00:03→12:35)
[2019-06-23] MEDS: LEVOTHYROXINE SODIUM 137 MCG TABLET PO SCH (06:03)
[2019-06-23 07:16] LABS: Basophils # (auto) 0.02 K/uL (0-0.2); Basophils % (auto) 0.2 %; Eosinophils # (auto) 0.44 K/uL (0-0.5); Eosinophils % (auto) 5.2 %; Hematocrit (blood only) 34.9 % (37-47); Hemoglobin 11.6 g/dL (12.0-16.0); Immature Granulocytes # (auto) 0.09 K/uL (0.00-0.02); Immature Granulocytes % (auto) 1.1 %; Lymphocytes # (auto) 1.29 K/uL (1.2-3.4); Lymphocytes % (auto) 15.2 %; Mean Corpuscular Hemoglobin 29.1 pg (25-34); Mean Corpuscular Hgb Conc 33.2 g/dL (32-36); Mean Corpuscular Volume 87.7 fL (80-100); Mean Platelet Volume 10.4 fL (7.4-10.4); Monocytes # (auto) 0.66 K/uL (0.11-0.59); Monocytes % (auto) 7.8 %; Neutrophils # (auto) 5.98 K/uL (1.4-6.5); Neutrophils % (auto) 70.5 %; Platelet Count 207 K/uL (130-400); RDW Coefficient of Variation 17.4 % (11.5-14.5); Red Blood Count 3.98 M/uL (4.2-5.4); White Blood Count 8.48 K/uL (4.8-10.8)
[2019-06-23] MEDS: INSULIN ASPART 100 UNITS/ML 3 ML PEN SC SCH ×2 (08:50→12:37)
[2019-06-23] MEDS: DIVALPROEX SODIUM SPRINKLE 125 MG CAP PO SCH ×3 (08:52→18:13)
[2019-06-23] MEDS: CIPROFLOXACIN 500 MG TAB PO SCH (08:53)
[2019-06-23] MEDS: CEROVITE ADV FORMULA TAB PO SCH (08:54)
[2019-06-23] MEDS: FLUVOXAMINE MALEATE 50 MG TAB PO SCH (08:54)
[2019-06-23] MEDS: LANSOPRAZOLE 30 MG SOLTAB PO SCH (08:55)
[2019-06-23] MEDS: MODAFINIL 100 MG TAB PO SCH (08:58)
[2019-06-23] MEDS: dilTIAZem HCL 180 MG CAPCR PO SCH (09:18)
--- NOTE | 2019-06-23 09:18 | Surgery Progress Note ---
Date of Service June 23, 2019 Assessment & Plan (1) Abdominal wall hematoma: 06/23/19 Hbg remains stable at 11.6 Removed last JHONATAN at bedside this AM No signs of recurring hematoma Will leave instructions for patient to follow up in clinic within a week for staple removal and wound check Patient seen and examined with Dr. Lyle Subjective Patient resting in bed. Offers no complaints. Physical Exam Physical Exam: lying in bed Gastrointestinal (Abdomen): Inspection/Auscultation: + abdominal surgical incision (c/d/i with surgical ashely. some ecchymosis ) and + abdominal surgical drain present (JPx1 with serosang output ~70cc) Results & Data Vital Signs (Past 12 Hours) Vital Signs Temp Pulse Pulse Pulse Resp BP BP 06/23/19 07:28 36.8 C 69 20 136/76 06/23/19 04:20 77 06/23/19 04:00 36.6 C 63 18 131/79 06/22/19 22:59 36.6 C 75 20 135/75 Pulse Ox 06/23/19 07:28 94 06/23/19 04:20 06/23/19 04:00 98 06/22/19 22:59 95 PG Care Time/CCT Total # of Minutes Spent Total Time Spent with Patient: Total time spent is greater than 50% in coordination of care (as documented) at patient's floor/unit and/or counseling patient: (1) Abdominal wall hematoma Encounter type: initial encounter Qualified Code(s): S30.1XXA - Contusion of abdominal wall, initial encounter
[2019-06-23] MEDS: LORazepam 0.5 MG TAB PO PRN (15:41)
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
== END 2019-06-23 18:13 | DRG 813 ==
LOC: ED 05:16 → 2W 08:28 → 1E 06-19 12:57 → 2W 06-20 16:51